=== PATIENT | female | born 1970 | race Caucasian/White ===

== ENCOUNTER → 2016-07-13 | Outpatient (CLI) | payer MEDICAID | LOC: WI 10:13 | PROVIDERS: ATTEND Obstetrics & Gynecology | DX: Z12.31 Encounter for screening mammogram for malignant neoplasm of breast (principal) | CPT/HCPCS: 77067; G0202 ==

== ENCOUNTER 2016-07-14 13:13 | Emergency (ER) | payer MEDICAID ==
[2016-07-14] MEDS ORDERED: PREDNISONE 20 MG TABLET PO ONE (14:05)
[2016-07-14] MEDS ORDERED: ALBUTEROL SULFATE HFA (90 MCG/PUFF) 200 PUFF/8.5 GM MDI IH ONE (14:06)
--- NOTE | 2016-07-14 14:16 | ER Document Report ---
ED Respiratory Problem - General Chief Complaint: Productive Cough Stated Complaint: COUGH Notes: [facility] complaining of 2 weeks of congested cough. She has nasal congestion as well. She went to an urgent care about a week ago and they started her on an antibiotic and has not helped. She tried using her friend's albuterol inhaler and doesn't feel like it is helping. The patient also started having coughing spells that resulted in her vomiting. She's had pain around her lower ribs on both sides from the coughing but that's been easing up. She is also had some pain in her hernia from the coughing as well. The patient says that yesterday she started having some diarrhea. Her significant other is also having diarrhea and vomiting presently. These is that she's felt subjective fever starting yesterday. She denies any other chest pain or difficult to breathing. She denies any history of asthma. She quit smoking back in March. She has had an albuterol inhaler prescribed to her once previously. The patient denies any. She denies any rashes or swelling. She denies any urinary symptoms. Denies . TRAVEL OUTSIDE OF THE [place] IN LAST 30 DAYS: No - Related Data Allergies/Adverse Reactions: chlorpheniramine [From [employer]] Allergy (Severe, Verified 07/14/16 13:41) headache, n and v dextromethorphan tannate [From [employer]] Allergy (Severe, Verified 07/14/16 13: 41) headache, n and v pseudoephedrine tannate [From [employer]] Allergy (Severe, Verified 07/14/16 13:41 ) headache, n and v Home Medications: Current Home Medications Cefdinir [Omnicef 300 mg Capsule] 1 cap PO BID 07/14/16 [History] Guaifenesin [Tussin] 100 mg PO PRN PRN 07/14/16 [History] Guaifenesin/Dextromethorphan [Mucus Relief Dm Tablet] 1 each PO 07/14/16 [ History] Omeprazole 20 mg PO DAILY 07/14/16 [History] Pantoprazole Sodium [Protonix] 20 mg PO DAILY 07/14/16 [History] Past Medical History - Social History Smoking Status: Former Smoker Lives with: Spouse/Significant other Family History: CAD, DM, Hypertension, Thyroid Disfunction Patient has suicidal ideation: No Patient has homicidal ideation: No - Past Medical History Cardiac Medical History: Reports: Hx Hypertension - no current meds Denies: Hx Coronary Artery Disease, Hx Heart Attack Pulmonary Medical History: Reports: Hx Bronchitis - hx of, Hx Pneumonia - hx of Denies: Hx Asthma, Hx COPD Neurological Medical History: Denies: Hx Cerebrovascular Accident, Hx Seizures Endocrine Medical History: Reports: Hx Diabetes Mellitus Type 2 - "borderline" per pt Renal/ Medical History: Denies: Hx Peritoneal Dialysis GI Medical History: Reports: Hx Gastroesophageal Reflux Disease Musculoskeltal Medical History: Denies Hx Arthritis Psychiatric Medical History: Reports: Hx Depression - anxiety Past Surgical History: Reports: Hx Section - x2, Hx Gynecologic Surgery - novasure, vag repair, Hx Tonsillectomy, Hx Tubal Ligation - Immunizations Immunizations up to date: No Hx Diphtheria, Pertussis, Tetanus Vaccination: No Review of Systems - Review of Systems Notes: A total of 11 systems were reviewed. Pertinent positives and negatives are listed in the history of present illness. Physical Exam - Vital signs Vitals: Temp Pulse Resp BP Pulse Ox 98.3 F 73 22 H 139/69 H 99 07/14/16 13:18 07/14/16 13:18 07/14/16 13:18 07/14/16 13:18 07/14/16 13:18 - Notes Notes: General presentation: Well developed alert patient who does not appear acutely ill or toxic. HEAD: Normocephalic and atraumatic. ENT: Neck is supple. Moist mucous membranes. No pharyngeal erythema edema or exudates. Hearing intact to normal voice. Eye: Pupils are equal, round. Lids normal. Conjunctiva clear. Pulmonary: No respiratory distress. Inspiratory and expiratory wheezes bilaterally with good air excursion without rales, rhonchi. Circulatory: Regular rate no significant murmurs, rubs, or gallop. Abdomen: Soft, nontender abdomen. No palpable organomegaly or masses. Normal bowel sounds. Neurologic: Awake, alert, and oriented. Grossly normal and symmetrical strength. MSK: Normal strength and range of motion. No swelling or tenderness. Skin: Skin is warm and dry with no lesions or rash. Psychiatric: Normal mood, affect, and cognition. Course - Re-evaluation Re-evalutation: 07/14/16 14:10 Patient with cough for 2 weeks with history of smoking. Symptoms most consistent with bronchitis. She is not hypoxic. No respiratory distress. We'll treat with albuterol and steroids. Regarding the new onset of diarrhea, patient may have developed GI bug or this may be secondary to the antibiotics that the urgent care gave her 4 the bronchitis last week. She does not appear dehydrated. We'll recommend by mouth fluids 07/14/16 15:05 Patient remained stable. She has improved aeration with 2 puffs of albuterol. She has had the prednisone. I have counseled her regarding management of her symptoms. She will be discharged home. - Vital Signs Vital signs: Temp Pulse Resp BP Pulse Ox 98.3 F 73 22 H 139/69 H 99 07/14/16 13:18 07/14/16 13:18 07/14/16 13:18 07/14/16 13:18 07/14/16 13:18 Discharge - Discharge Clinical Impression: Bronchitis Instructions: Bronchitis ([facility]) Additional Instructions: Use inhaler every 4 hours as needed for wheezing and cough. Try Mucinex through the day to help thin secretions to cough sputum up. Use prednisone daily with next dose tomorrow with breakfast or lunch. Return for fevers not controlled by Tylenol and Motrin, worsening difficult to breathing, chest pain, or other worsening or concerning symptoms. Bronchitis You have acute bronchitis. This disease is an infection or inflammation of the air passageways in your lungs. Symptoms usually include cough, low grade fever, shortness of breath, and wheezing. The cough usually persists for a couple of weeks. Most cases of bronchitis get better without antibiotics. We prescribe antibiotics when we believe bacteria are damaging your airways, or if there's high risk the bronchitis will worsen into pneumonia. Increase your fluid intake. A cool mist humidifier may make your lungs more comfortable. An expectorant (cough medicine that loosens phlegm) can help. If you smoke, STOP!!! Recovery from bronchitis can be somewhat slow, but you should see improvement within a day or two. Repeated episodes of bronchitis may result in lung damage -- for example, chronic bronchitis, recurrent pneumonias, or emphysema. Call the doctor if you develop increasing fever, shortness of breath, chest pain, bloody sputum, or otherwise worsen. If you have not improved at all after several days, contact the physician. Prescriptions: Albuterol Sulfate [Proair HFA Inhalation Aerosol 8.5 gm MDI] 2 puff IH Q4H PRN # 1 mdi PRN Reason: Prednisone [Deltasone 20 mg Tablet] 3 tab PO DAILY 5 Days
[2016-07-14 15:27] VITALS: BP 140/70
== END 2016-07-14 15:25 | disposition home or self-care (01) ==
LOC: ER 13:13
DX: J40 Bronchitis, not specified as acute or chronic (principal); R05 Cough; R11.10 Vomiting, unspecified; I10 Essential (primary) hypertension; R73.03 Prediabetes; Z98.51 Tubal ligation status; Z87.891 Personal history of nicotine dependence
CPT/HCPCS: 99283; J7512; J3490

== ENCOUNTER → 2017-01-29 | Outpatient (CLI) | payer MEDICAID | LOC: OD 10:01 | PROVIDERS: ATTEND Family Medicine | DX: B34.9 Viral infection, unspecified (principal); Z68.42 Body mass index [BMI] 45.0-49.9, adult | CPT/HCPCS: 87804 ==

== ENCOUNTER 2018-09-08 00:01 | Emergency (ER) | payer MEDICAID ==
[2018-09-08] MEDS ORDERED: ONDANSETRON 4 MG TAB.RAPDIS PO ONE (00:14)
[2018-09-08] MEDS ORDERED: NORMAL SALINE 1000 ML 1,000 ML IV ONE (00:14)
[2018-09-08] MEDS ORDERED: OXYCODONE-ACETAMINOPHEN 5-325 MG TABLET PO ONE (00:15)
--- NOTE | 2018-09-08 00:18 | ER Document Report ---
ED Medical Screen (RME) - General Chief Complaint: Abdominal Pain Stated Complaint: LEFT SIDE PAIN/VOMITING Time Seen by Provider: 09/08/18 00:13 Primary Care Provider: MELISSA TAFOYA DO [Primary Care Provider] - Follow up as needed Notes: 47-year-old female chief complaint of severe mid to left-sided abdominal pain and vomiting. She has a history of gastric bypass, she has a known very large hernia over the lower abdomen generally with large amount of intestines in the hernia persistently, had a gastric bypass to lose weight so she could have this repaired at [facility]. Denies fever but states she is started vomiting with severe pain today. TRAVEL OUTSIDE OF THE [place] IN LAST 30 DAYS: No - Related Data Allergies/Adverse Reactions: chlorpheniramine [From [employer]] Allergy (Severe, Verified 07/14/16 13:41) headache, n and v dextromethorphan tannate [From [employer]] Allergy (Severe, Verified 07/14/16 13:41) headache, n and v pseudoephedrine tannate [From [employer]] Allergy (Severe, Verified 07/14/16 13:41) headache, n and v Past Medical History - Past Medical History Cardiac Medical History: Reports: Hx Hypertension - no current meds Denies: Hx Coronary Artery Disease, Hx Heart Attack Pulmonary Medical History: Reports: Hx Bronchitis - hx of, Hx Pneumonia - hx of Denies: Hx Asthma, Hx COPD Neurological Medical History: Denies: Hx Cerebrovascular Accident, Hx Seizures Endocrine Medical History: Reports: Hx Diabetes Mellitus Type 2 - "borderline" per pt Renal/ Medical History: Denies: Hx Peritoneal Dialysis GI Medical History: Reports: Hx Gastroesophageal Reflux Disease Musculoskeltal Medical History: Denies Hx Arthritis Psychiatric Medical History: Reports: Hx Depression - anxiety Past Surgical History: Reports: Hx Section - x2, Hx Gynecologic Surgery - novasure, vag repair, Hx Tonsillectomy, Hx Tubal Ligation - Immunizations Immunizations up to date: No Hx Diphtheria, Pertussis, Tetanus Vaccination: No Physical Exam - Vital signs Vitals: Temp Pulse Resp BP Pulse Ox 98.1 F 89 20 172/88 H 100 09/08/18 00:09 09/08/18 00:09 09/08/18 00:09 09/08/18 00:09 09/08/18 00:09 - Abdominal Tenderness: Tender - Very large distention of the lower abdomen, tenderness is actually worst above this in the left upper quadrant and mid abdomen, I do not see an incarcerated hernia on exam. Course - Re-evaluation Re-evalutation: Patient appears to be guarding in the left upper quadrant and then mid abdomen although exam is limited by body habitus and sitting position. Because of patient's level of distress with abdominal pain, history of gastric bypass and large hernia, she was upgraded to triage level 2 I have greeted and performed a rapid initial assessment of this patient. A comprehensive ED assessment and evaluation of the patient, analysis of test results and completion of the medical decision making process will be conducted by additional ED providers. - Vital Signs Vital signs: Temp Pulse Resp BP Pulse Ox 98.1 F 89 20 172/88 H 100 09/08/18 00:09 09/08/18 00:09 09/08/18 00:09 09/08/18 00:09/08/18 00:09 Doctor's Discharge - Discharge Referrals: MELISSA TAFOYA DO [Primary Care Provider] - Follow up as needed
[2018-09-08 00:32] LABS: ABSOLUTE LYMPHOCYTES (AUTO) 1.4 10^3/uL (0.5-4.7); ABSOLUTE NEUT (AUTO) 8.5 10^3/uL (1.7-8.2); BASOPHILS % (AUTO) 0.5 % (0-2); EOSINOPHILS % (AUTO) 1.2 % (0-6); HEMATOCRIT 41.1 % (36.0-47.0); HEMOGLOBIN 13.9 g/dL (12.0-15.5); LYMPHOCYTES % (AUTO) 13.4 % (13-45); MEAN CORPUSCULAR HEMOGLOBIN 28.2 pg (27.0-33.4); MEAN CORPUSCULAR HGB CONC 33.9 g/dL (32.0-36.0); MEAN CORPUSCULAR VOLUME 83 fl (80-97); MONOCYTES % (AUTO) 4.1 % (3-13); PLATELET COUNT 275 10^3/uL (150-450); RED BLOOD COUNT 4.94 10^6/uL (3.72-5.28); RED CELL DISTRIBUTION WIDTH 13.1 % (11.5-14.0); SEGMENTED NEUTROPHILS % (AUTO) 80.8 % (42-78); TOTAL CELLS COUNTED % (AUTO) 100 %; WHITE BLOOD COUNT 10.6 10^3/uL (4.0-10.5)
[2018-09-08 00:33] LABS: ABSOLUTE BASOPHILS # (AUTO) 0.1 10^3/uL (0.0-0.2); ABSOLUTE EOSINOPHILS # (AUTO) 0.1 10^3/uL (0.0-0.6); ABSOLUTE MONOCYTES (AUTO) 0.4 10^3/uL (0.1-1.4)
[2018-09-08 00:38] LABS: APPEARANCE,URINE SLIGHTLY-CLOUDY; BILIRUBIN,URINE NEGATIVE (NEGATIVE); COLOR,URINE YELLOW; GLUCOSE, URINE NEGATIVE (NEGATIVE); KETONES,URINE TRACE mg/dL (NEGATIVE); LEUKOCYTE ESTERASE,URINE LARGE (NEGATIVE); NITRITE,URINE NEGATIVE (NEGATIVE); PROTEIN,URINE 30 mg/dL (NEGATIVE); URINE SPECIFIC GRAVITY 1.028
--- NOTE | 2018-09-08 00:48 | RADIOLOGY REPORT (SQ) ---
CLINICAL HISTORY: SHARP ABD PAIN, HX BYPASS, VOMITING COMPARISON: None. TECHNIQUE: XR ABDOMEN SUPINE AND ERECT WITH CHEST (ABD ACUTE SERIES) 09/08/2018 12:00 AM CDT FINDINGS: Bowel gas pattern is nonspecific. There are no abnormal radiopaque foreign bodies or abnormal calcifications. There are mild degenerative changes most of the heart is normal in size. Lungs are clear. IMPRESSION: No bowel obstruction.
[2018-09-08 00:57] LABS: ALANINE AMINOTRANSFERASE 25 U/L (9-52); ALBUMIN 4.7 g/dL (3.5-5.0); ALKALINE PHOSPHATASE 88 U/L (38-126); ANION GAP 8 (5-19); ASPARTATE AMINO TRANSFERASE 21 U/L (14-36); BILIRUBIN,DIRECT 0.2 mg/dL (0.0-0.4); BILIRUBIN,TOTAL 0.7 mg/dL (0.2-1.3); BLOOD UREA NITROGEN 15 mg/dL (7-20); CALCIUM 10.1 mg/dL (8.4-10.2); CARBON DIOXIDE 28 mmol/L (22-30); CHLORIDE 102 mmol/L (98-107); GLUCOSE 147 mg/dL (75-110); LIPASE 93.2 U/L (23-300); POTASSIUM 4.8 mmol/L (3.6-5.0); SODIUM 138.2 mmol/L (137-145); TOTAL PROTEIN 7.9 g/dL (6.3-8.2)
[2018-09-08] MEDS ORDERED: HYDROMORPHONE HCL INJ/PF 2 MG/ML AMPULE IV PRN (01:03)
[2018-09-08] MEDS ORDERED: ONDANSETRON HCL INJ/PF 4 MG/2 ML SDV IV ONE (01:03)
--- NOTE | 2018-09-08 01:03 | ER Document Report ---
ED General - General Chief Complaint: Abdominal Pain Stated Complaint: LEFT SIDE PAIN/VOMITING Time Seen by Provider: 09/08/18 00:13 Primary Care Provider: MELISSA TAFOYA DO [NO LOCAL MD] - Follow up as needed Notes: Patient is a 47-year-old female with a past medical history of morbid obesity, chronic large ventral abdominal hernia, status post gastric sleeve, presents with worsening pain to her knee particularly in the left lower quadrant. The patient states that she constantly has a very large ventral hernia often has a increased prominence in the left lower quadrant although feels like it is more bulged out than normal. She states several hours prior to presentation she began having a dull, throbbing, constant discomfort to the area that became progressively more painful over the last 4 to 5 hours now a severe pain. States that she vomited multiple times since the pain started. She did try taking Pepto-Bismol with no relief. She states that she has had similar pain in the past although this might be worse than any pain she is ever had in regards to the hernia and she has never vomited in the past with this pain. She states the vomiting is what did prompted her to come to the emergency department. She has not had fever or constitutional symptoms. No obvious triggering factor tonight. She has not seen her primary care doctor regarding today's concerns. TRAVEL OUTSIDE OF THE [place] IN LAST 30 DAYS: No - Related Data Allergies/Adverse Reactions: chlorpheniramine [From [email or web address]] Allergy (Severe, Verified 07/14/16 13:41) headache, n and v dextromethorphan tannate [From [employer]] Allergy (Severe, Verified 07/14/16 13: 41) headache, n and v pseudoephedrine tannate [From [employer]] Allergy (Severe, Verified 07/14/16 13 :41) headache, n and v Past Medical History - General Information source: Patient - Social History Smoking Status: Never Smoker Frequency of alcohol use: None Drug Abuse: None Lives with: Family Family History: CAD, DM, Hypertension, Thyroid Disfunction - Past Medical History Cardiac Medical History: Reports: Hx Hypertension - no current meds Denies: Hx Coronary Artery Disease, Hx Heart Attack Pulmonary Medical History: Reports: Hx Bronchitis - hx of, Hx Pneumonia - hx of Denies: Hx Asthma, Hx COPD Neurological Medical History: Denies: Hx Cerebrovascular Accident, Hx Seizures Endocrine Medical History: Reports: Hx Diabetes Mellitus Type 2 - "borderline" per pt Renal/ Medical History: Denies: Hx Peritoneal Dialysis GI Medical History: Reports: Hx Gastroesophageal Reflux Disease Musculoskeletal Medical History: Denies Hx Arthritis Psychiatric Medical History: Reports: Hx Depression - anxiety Past Surgical History: Reports: Hx Section - x2, Hx Gynecologic Surgery - novasure, vag repair, Hx Tonsillectomy, Hx Tubal Ligation - Immunizations Immunizations up to date: No Hx Diphtheria, Pertussis, Tetanus Vaccination: No Review of Systems - Review of Systems Notes: Constitutional: Negative for fever. HENT: Negative for sore throat. Eyes: Negative for visual changes. Cardiovascular: Negative for chest pain. Respiratory: Negative for shortness of breath. Gastrointestinal: Positive for abdominal pain, nausea and vomiting Genitourinary: Negative for dysuria. Musculoskeletal: Negative for back pain. Skin: Negative for rash. Neurological: Negative for headaches, weakness or numbness. 10 point ROS negative except as marked above and in HPI. Physical Exam - Vital signs Vitals: Temp Pulse Resp BP Pulse Ox 98.1 F 89 20 172/88 H 100 09/08/18 00:09 09/08/18 00:09 09/08/18 00:09 09/08/18 00:09/08/18 00:09 Interpretation: Hypertensive Notes: PHYSICAL EXAMINATION: GENERAL: Appears very uncomfortable HEAD: Atraumatic, normocephalic. EYES: Pupils equal round and reactive to light, extraocular movements intact, sclera anicteric, conjunctiva are normal. ENT: nares patent, oropharynx clear without exudates. Moist mucous membranes. NECK: Normal range of motion, supple without lymphadenopathy LUNGS: Breath sounds clear to auscultation bilaterally and equal. No wheezes rales or rhonchi. HEART: Regular rate and rhythm without murmurs ABDOMEN: Morbidly obese abdomen, extremely large ventral hernia with an increased protuberance in the left lower quadrant portion of the ventral hernia. There is diffuse tenderness on palpation of the hernia although it is overall soft and compressible including over the left lower quadrant. Bowel sounds are present. EXTREMITIES: Normal range of motion, no pitting or edema. No cyanosis. NEUROLOGICAL: No focal neurological deficits. Moves all extremities spontaneously and on command. PSYCH: Normal mood, normal affect. SKIN: Warm, Dry, normal turgor, no rashes or lesions noted. Course - Re-evaluation Re-evalutation: 09/08/18 01:02 Patient presents with severe left-sided lower abdominal pain. Has a very large ventral abdominal hernia that is constantly present but there is an area of bulging to the left lower abdomen that patient states is always there but does not usually protrude this much. The patient has exquisite tenderness on palpation of this area although it is soft and compressible. She has had recurrent episodes of vomiting. I did immediately contact the surgeon on-call Dr. Pink due to concerns of possible incarcerated hernia. He requested CT scan of the abdomen and pelvis prior to formally consulting and evaluating the patient. This will be completed at his request. Labs pending. Will provide analgesia, IV fluids and reassess the patient. 09/08/18 04:[address] Pink has consulted on the patient, advises patient is safe for discharge home. Patient does appear much more comfortable, no longer in any kind of distress. At this time will discharge with return precaut ions and follow-up recommendations. Verbal discharge instructions given a the bedside and opportunity for questions given. Medication warnings reviewed. Patient is in agreement with this plan and has verbalized understanding of return precautions and the need for primary care follow-up in the next 24-72 hours. - Vital Signs Vital signs: Temp Pulse Resp BP Pulse Ox 98.1 F 89 20 172/88 H 100 09/08/18 00:09 09/08/18 00:09 09/08/18 00:09 09/08/18 00:09 09/08/18 00:09 - Laboratory Result Diagrams: 09/08/18 00:15 09/08/18 00:15 Laboratory results interpreted by me: 09/08/18 09/08/18 09/08/18 00:15 00:15 00:15 WBC 10.6 H Seg Neutrophils % 80.8 H Absolute Neutrophils 8.5 H Glucose 147 H Urine Protein 30 H Urine Ketones TRACE H Urine Urobilinogen 4.0 H Ur Leukocyte Esterase LARGE H - Diagnostic Test Radiology reviewed: Reports reviewed Discharge - Discharge Clinical Impression: Ventral hernia Qualifiers: Obstruction and gangrene presence: without obstruction or gangrene Qualified Code(s): K43.9 - Ventral hernia without obstruction or gangrene Abdominal pain Qualifiers: Abdominal location: unspecified location Qualified Code(s): R10.9 - Unspecified abdominal pain Nausea and vomiting Qualifiers: Vomiting type: unspecified Vomiting Intractability: non-intractable Qualified Code(s): R11.2 - Nausea with vomiting, unspecified Condition: Good Disposition: HOME, SELF-CARE Additional Instructions: Keep a clear liquid diet for the next 48 hours. Take stool softeners 2 tabs docusate twice daily. Return if you have worsening pain, fever, persistent vomiting, pass out, or have any other symptoms that are worrisome to you. Referrals: MELISSA TAFOYA DO [NO LOCAL MD] - Follow up in 3-5 days
--- NOTE | 2018-09-08 02:34 | RADIOLOGY REPORT (SQ) ---
CLINICAL HISTORY: abdominal pain, vomiting, ?incarcerated hernia COMPARISON: None. TECHNIQUE: CT ABDOMEN PELVIS WITH IV CONTRAST on 09/08/2018 12:51 AM CDT This exam was performed according to our departmental dose-optimization program, which includes automated exposure control, adjustment of the mA and/or kV according to patient size and/or use of iterative reconstruction technique. FINDINGS: Lower lungs are clear. Abdomen: The liver is normal in appearance. There is no biliary dilatation. Gallbladder is normal in appearance. There are postoperative changes of the upper stomach. The pancreas and spleen are normal in appearance. The adrenal glands and kidneys are unremarkable. Abdominal aorta is normal in course and caliber without aneurysm. There is no free air. There is no retroperitoneal adenopathy. Pelvis: There is dilatation of small bowel loops proximal to the femoral hernias component. Distal small bowel is decompressed. Urinary bladder is unremarkable. There is no free fluid. Uterus is normal in size. Appendix is not clearly seen. There are large complex ventral hernias extending into the pannus. Skeleton: There are no acute osseous findings. No suspicious bony lesions. IMPRESSION: Complex ventral hernia containing multiple bowel loops. Small bowel obstruction may secondarily
--- NOTE | 2018-09-08 04:19 | PDOC CONSULTATION ---
Consultation Consult Date: 09/08/18 Provider Consulted: MALATHI LEI Consult reason:: Abdominal pain ventral hernia History of Present Illness Admission Date/PCP: NIGHAT TOWNSEND MD History of Present Illness: AILYN STRINGER is a 47 year old female who presents with left-sided abdominal pain and nausea. She has a long-standing history of a very large lower abdominal ventral hernia that resulted from previous surgery. The dates back to 2013 last seen in the emergency room here. She has undergone bariatric surgery and attempts at weight loss so that the hernia could be repaired. She has seen multiple surgeons suggested that she lose weight that the hernia could not be repaired until she lost some significant amount of weight. This resulted in bariatric surgery done at [facility] in [place] approximately 5 years ago. Patient is only lost 15 to 25 pounds as her gastric sleeve surgery. Tonight with increasing left-sided abdominal pain over the course of the last couple days has not really had a significant bowel movement however has been passing flatus. Denies any severe abdominal pain however her pain is localized to the left side which she said is usual for her but over the last couple days has been somewhat worse. Past Medical History Cardiac Medical History: Reports: Hypertension - no current meds Denies: Coronary Artery Disease, Myocardial Infarction Pulmonary Medical History: Reports: Bronchitis - hx of, Pneumonia - hx of Denies: Asthma, Chronic Obstructive Pulmonary Disease (COPD) Neurological Medical History: Denies: Seizures Endocrine Medical History: Reports: Diabetes Mellitus Type 2 - "borderline" per pt GI Medical History: Reports: Gastroesophageal Reflux Disease Musculoskeltal Medical History: Denies: Arthritis Psychiatric Medical History: Reports: Depression - anxiety Hematology: Denies: Anemia Past Surgical History Past Surgical History: Reports: Section - x2, Tonsillectomy, Tubal Ligation, Other - Gastric sleeve surgery Social History Smoking Status: Former Smoker Frequency of Alcohol Use: Rare Hx Recreational Drug Use: No Hx Prescription Drug Abuse: No Family History Family History: CAD, DM, Hypertension, Thyroid Disfunction Parental Family History Reviewed: No Children Family History Reviewed: NA Sibling(s) Family History Reviewed.: NA Medication/Allergy Home Medications: Albuterol Sulfate [Proair HFA Inhalation Aerosol 8.5 gm MDI] 2 puff IH Q4H PRN #1 mdi 07/14/16 Cefdinir [Omnicef 300 mg Capsule] 1 cap PO BID 07/14/16 Guaifenesin [Tussin] 100 mg PO PRN PRN 07/14/16 Guaifenesin/Dextromethorphan [Mucus Relief Dm Tablet] 1 each PO 07/14/16 Omeprazole 20 mg PO DAILY 07/14/16 Pantoprazole Sodium [Protonix] 20 mg PO DAILY 07/14/16 Prednisone [Deltasone 20 mg Tablet] 3 tab PO DAILY 5 Days tablet 07/14/16 Allergies/Adverse Reactions: chlorpheniramine [From [employer] ] Allergy (Severe, Verified 07/14/16 13:41) headache, n and v dextromethorphan tannate [From [employer] ] Allergy (Severe, Verified 07/14/16 13:41) headache, n and v pseudoephedrine tannate [From [employer] ] Allergy (Severe, Verified 07/14/16 13:41) headache, n and v Physical Exam Vital Signs: Temp Pulse Resp BP Pulse Ox 98.1 F 89 20 172/88 H 100 09/08/18 00:09 09/08/18 00:09 09/08/18 00:09 09/08/18 00:09 09/08/18 00:09 Intake & Output 09/06/18 09/07/18 09/08/18 06:59 06:59 06:59 Intake Total 1000 Balance 1000 Weight 129.1 kg Results Laboratory Results: 09/08/18 00:15 09/08/18 00:15 09/08/18 09/08/18 09/08/18 00:15 00:15 00:15 WBC 10.6 H RBC 4.94 Hgb 13.9 Hct 41.1 MCV 83 MCH 28.2 MCHC 33.9 RDW 13.1 Plt Count 275 Seg Neutrophils % 80.8 H Lymphocytes % 13.4 Monocytes % 4.1 Eosinophils % 1.2 Basophils % 0.5 Absolute Neutrophils 8.5 H Absolute Lymphocytes 1.4 Absolute Monocytes 0.4 Absolute Eosinophils 0.1 Absolute Basophils 0.1 Sodium 138.2 Potassium 4.8 Chloride 102 Carbon Dioxide 28 Anion Gap 8 BUN 15 Creatinine 0.58 Est GFR ( Amer) > 60 Est GFR (Non-Af Amer) > 60 Glucose 147 H Lactic Acid 1.0 Calcium 10.1 Total Bilirubin 0.7 AST 21 ALT 25 Alkaline Phosphatase 88 Total Protein 7.9 Albumin 4.7 Lipase 93.2 Urine Color Urine Appearance Urine pH Ur Specific [place] Urine Protein Urine Glucose (UA) Urine Ketones Urine Blood Urine Nitrite Ur Leukocyte Esterase Urine WBC (Auto) Urine RBC (Auto) 09/08/18 00:15 WBC RBC Hgb Hct MCV MCH MCHC RDW Plt Count Seg Neutrophils % Lymphocytes % Monocytes % Eosinophils % Basophils % Absolute Neutrophils Absolute Lymphocytes Absolute Monocytes Absolute Eosinophils Absolute Basophils Sodium Potassium Chloride Carbon Dioxide Anion Gap BUN Creatinine Est GFR ( Amer) Est GFR (Non-Af Amer) Glucose Lactic Acid Calcium Total Bilirubin AST ALT Alkaline Phosphatase Total Protein Albumin Lipase Urine Color YELLOW Urine Appearance SLIGHTLY-CLOUDY Urine pH 7.0 Ur Specific [place] 1.028 Urine Protein 30 H Urine Glucose (UA) NEGATIVE Urine Ketones TRACE H Urine Blood NEGATIVE Urine Nitrite NEGATIVE Ur Leukocyte Esterase LARGE H Urine WBC (Auto) 5 Urine RBC (Auto) 3 Impressions: Acute Abdomen Series 09/08/18 00:00 IMPRESSION: No bowel obstruction. Abdomen/Pelvis CT 09/08/18 00:51 IMPRESSION: Complex ventral hernia containing multiple bowel loops. Small bowel obstruction may secondarily Assessment & Plan - Plan Summary Plan Summary: Impression: Long-standing ventral hernia with chronic abdominal pain status post gastric sleeve surgery. Her abdominal pain has markedly improved since her emergency room stay Long discussion with the patient and family we went over the CT scan findings I explained that any type of attempted repair of this large ventral hernia at this point not any significant weight loss we will almost 100% result in failure Plain that her left-sided abdominal pain right now is secondary not to a bowel obstruction but to the hernia defect and the small bowel and colon sliding over the edges of her remaining fascia. Patient also complains of chronic constipation she exacerbates her current problem After long discussion with the patient and her family is encouraged to follow-up with her bariatric program they may be able to assist her with a type of back on track program for further weight loss. Short-term she is instructed to stay on a clear liquid diet for the next 48 hours and start taking stool softeners for the constipation She is also instructed to return here should she start developing increasing nausea and vomiting and increasing abdominal pain
[2018-09-08 04:24] VITALS: BP 145/76
== END 2018-09-08 04:44 | disposition home or self-care (01) ==
LOC: ER 00:01
DX: K43.9 Ventral hernia without obstruction or gangrene (principal); R11.2 Nausea with vomiting, unspecified; R10.32 Left lower quadrant pain; I10 Essential (primary) hypertension; Z98.51 Tubal ligation status; K21.9 Gastro-esophageal reflux disease without esophagitis; Z79.899 Other long term (current) drug therapy; Z88.8 Allergy status to other drugs, medicaments and biological substances; Z98.84 Bariatric surgery status
CPT/HCPCS: 99285; 96361; 96374; 96375; 36415; 83605; 83690; 85025; 80053; 81001; 74022; 74177; J1170; J2405; J7030

== ENCOUNTER 2018-10-01 05:56 | Emergency (ER) | payer MEDICAID ==
[2018-10-01] MEDS ORDERED: MORPHINE SULFATE 10 MG/ML INJ IV ONE ×2 (06:34→16:22)
[2018-10-01] MEDS ORDERED: ONDANSETRON HCL INJ/PF 4 MG/2 ML SDV IV ONE (06:34)
--- NOTE | 2018-10-01 06:40 | ER Document Report ---
ED General - General TRAVEL OUTSIDE OF THE [place] IN LAST 30 DAYS: No <ARGENIS CALDERON A - Last Filed: 10/01/18 14:25> <TORI LUNDY Terrence - Last Filed: 10/01/18 17:55> - General Chief Complaint: Abdominal Pain Stated Complaint: ABDOMINAL PAIN AND VOMITING Time Seen by Provider: 10/01/18 06:20 Primary Care Provider: NIGHAT TOWNSEND MD [Primary Care Provider] - Follow up as needed - [facility] Notes: Patient is a 47-year-old female that presents to the emergency department for chief complaint of hernia pain. Patient reports history of left-sided hernia after a . The hernia has been there for years and does frequently give her pain. She states the last time it was this severe was about a month ago. Patient states last night while at rest she had sudden onset of severe sharp pain in her left side where the hernia is located. She states she was passing gas yesterday and did have a loose bowel movement this morning. Patient reports nausea with multiple episodes of vomiting starting last night. She denies fevers or chills. She denies taking home medications for pain. Past Medical History: Chronic ventral hernia, COPD, obesity Past Surgical History: , bariatric surgery Social History: Reviewed in chart Family History: Reviewed and noncontributory for presenting illness Allergies: Reviewed, see documented allergy list. REVIEW OF SYSTEMS: CONSTITUTIONAL : No fever No chills No diaphoresis No recent illness EENT: No vision changes No congestion No sore throat CARDIOVASCULAR: No chest pain No palpitations RESPIRATORY: No shortness of breath No cough No difficulty breathing GASTROINTESTINAL: abdominal pain nausea vomiting diarrhea GENITOURINARY: No dysuria No hematuria No difficulty urinating MUSCULOSKELETAL: No back pain No leg pain No arm pain SKIN: No rashes No lesions LYMPHATIC: No swollen, enlarged glands. NEUROLOGICAL: No lightheadedness No headache No weakness No paresthesias PSYCHIATRIC: No anxiety No depression PHYSICAL EXAMINATION: Vital signs reviewed, nursing noted reviewed. GENERAL: Appears uncomfortable, obese and in no acute distress. HEAD: Atraumatic, normocephalic. EYES: Eyes appear normal, extraocular movements intact, sclera anicteric, conjunctiva are normal. ENT: nares patent, oropharynx clear without exudates. Moist mucous membranes. NECK: Normal range of motion, supple without lymphadenopathy LUNGS: Breath sounds clear to auscultation bilaterally and equal. No wheezes rales or rhonchi. HEART: Regular rate and rhythm without murmurs ABDOMEN: large ventral hernia on the left lower abdomen that is firm and tender to palpation. No rebound, guarding, or rigidity. EXTREMITIES: Nontender, good range of motion, trace pretibial edema bilaterally NEUROLOGICAL: No focal neurological deficits. Moves all extremities spontaneously Motor and sensory grossly intact on exam. PSYCH: Anxious mood, normal affect. SKIN: Warm, Dry, normal turgor, no rashes or lesions noted on exposed skin (ARGENIS CALDERON) - Related Data Allergies/Adverse Reactions: chlorpheniramine [From [address] DS] Allergy (Severe, Verified 10/01/18 06:31) headache, n and v dextromethorphan tannate [From [address] DS] Allergy (Severe, Verified 10/01/18 06:31) headache, n and v pseudoephedrine tannate [From [address] DS] Allergy (Severe, Verified 10/01/18 06:31) headache, n and v NSAIDS (Non-Steroidal Anti-Inflamma Adverse Reaction (Verified 10/01/18 07:39) Past Medical History - Social History Smoking Status: Former Smoker Frequency of alcohol use: Rare Drug Abuse: None Family History: CAD, DM, Hypertension, Thyroid Disfunction Patient has suicidal ideation: No Patient has homicidal ideation: No - Past Medical History Cardiac Medical History: Reports: Hx Hypertension - no current meds Denies: Hx Coronary Artery Disease, Hx Heart Attack Pulmonary Medical History: Reports: Hx Bronchitis - hx of, Hx Pneumonia - hx of Denies: Hx Asthma, Hx COPD Neurological Medical History: Denies: Hx Cerebrovascular Accident, Hx Seizures Endocrine Medical History: Reports: Hx Diabetes Mellitus Type 2 - "borderline" per pt Renal/ Medical History: Denies: Hx Peritoneal Dialysis GI Medical History: Reports: Hx Gastroesophageal Reflux Disease Musculoskeletal Medical History: Denies Hx Arthritis Psychiatric Medical History: Reports: Hx Depression - anxiety Past Surgical History: Reports: Hx Section - x2, Hx Gynecologic Surgery - novasure, vag repair, Hx Tonsillectomy, Hx Tubal Ligation, Other - Gastric sleeve surgery - Immunizations Immunizations up to date: No Hx Diphtheria, Pertussis, Tetanus Vaccination: No <ARGENIS CALDERON - Last Filed: 10/01/18 14:25> - Vital signs Vitals: Temp Pulse Resp BP Pulse Ox 98.0 F 83 24 H 153/83 H 99 10/01/18 06:01 10/01/18 06:01 10/01/18 06:01 10/01/18 06:01 10/01/18 06:01 Course - Laboratory Result Diagrams: 10/01/18 06:35 10/01/18 08:09 <CALDERONARGENIS A - Last Filed: 10/01/18 14:25> - Laboratory Result Diagrams: 10/01/18 06:35 10/01/18 08:09 <JACYELAINEJOSE ANGELMELISSA M - Last Filed: 10/01/18 17:55> - Re-evaluation Re-evalutation: 10/01/18 06:39 Vitals reviewed. Nursing notes reviewed. Patient is afebrile and nontoxic. She does appear uncomfortable and reports nausea. She was given IV fluids, morphine and Zofran for symptomatic management. Chart review shows a complex ventral hernia that was evaluated by Dr. Pink on her previous visit. Patient had been recommended significant weight loss prior to being able to repair this hernia for concern that repair would fail if she was unable to lose the weight. CT imaging will be obtained to evaluate for possible bowel obstruction or incarceration. 10/01/18 10:15 Patient's lab work today shows a very mild leukocytosis at 11 and slight hyperglycemia but is otherwise unremarkable. She has normal liver and renal function. On reevaluation patient is ambulating around the room and reports significant improvement of her pain. She does still have tenderness over the hernia site. She has some reported nausea but has not had any vomiting while in the emergency room. Her CT scan again shows partial small bowel obstruction with most of her small bowel being in this hernia. I have discussed her care with Dr. Tracy and requested his evaluation of her in the emergency room which he has agreed to. Currently we are waiting on surgical consultation. Laboratory 10/01/18 10/01/18 10/01/18 06:25 06:35 06:35 WBC 11.1 H RBC 5.01 Hgb 14.0 Hct 41.8 MCV 84 MCH 28.0 MCHC 33.5 RDW 13.4 Plt Count 279 Seg Neutrophils % 86.0 H Lymphocytes % 9.5 L Monocytes % 2.7 L Eosinophils % 1.1 Basophils % 0.7 Absolute Neutrophils 9.6 H Absolute Lymphocytes 1.1 Absolute Monocytes 0.3 Absolute Eosinophils 0.1 Absolute Basophils 0.1 Sodium Cancelled Potassium Cancelled Chloride Cancelled Carbon Dioxide Cancelled Anion Gap Cancelled BUN Cancelled Creatinine Cancelled Est GFR ( Amer) Cancelled Est GFR (Non-Af Amer) Cancelled Glucose Cancelled Calcium Cancelled Total Bilirubin Cancelled Direct Bilirubin Cancelled Neonat Total Bilirubin Cancelled Neonat Direct Bilirubin Cancelled Neonat Indirect Bili Cancelled AST Cancelled ALT Cancelled Alkaline Phosphatase Cancelled Total Protein Cancelled Albumin Cancelled Lipase Cancelled Urine Color YELLOW Urine Appearance CLOUDY Urine pH 9.0 Ur Specific [place] 1.023 Urine Protein NEGATIVE Urine Glucose (UA) NEGATIVE Urine Ketones NEGATIVE Urine Blood NEGATIVE Urine Nitrite NEGATIVE Urine Bilirubin NEGATIVE Urine Urobilinogen NEGATIVE Ur Leukocyte Esterase NEGATIVE Urine WBC (Auto) 2 Squamous Epi Cells Auto 1 Amorphous Sediment Auto TRACE Urine Mucus (Auto) RARE Urine Ascorbic Acid NEGATIVE 10/01/18 08:09 WBC RBC Hgb Hct MCV MCH MCHC RDW Plt Count Seg Neutrophils % Lymphocytes % Monocytes % Eosinophils % Basophils % Absolute Neutrophils Absolute Lymphocytes Absolute Monocytes Absolute Eosinophils Absolute Basophils Sodium 140.5 Potassium 4.5 Chloride 105 Carbon Dioxide 24 Anion Gap 12 BUN 11 Creatinine 0.52 Est GFR ( Amer) > 60 Est GFR (Non-Af Amer) > 60 Glucose 131 H Calcium 9.5 Total Bilirubin 0.9 Direct Bilirubin 0.4 Neonat Total Bilirubin Not Reportable Neonat Direct Bilirubin Not Reportable Neonat Indirect Bili Not Reportable AST 24 ALT 23 Alkaline Phosphatase 72 Total Protein 7.9 Albumin 4.7 Lipase 77.3 Urine Color Urine Appearance Urine pH Ur Specific [place] Urine Protein Urine Glucose (UA) Urine Ketones Urine Blood Urine Nitrite Urine Bilirubin Urine Urobilinogen Ur Leukocyte Esterase Urine WBC (Auto) Squamous Epi Cells Auto Amorphous Sediment Auto Urine Mucus (Auto) Urine Ascorbic Acid Abdomen/Pelvis CT 10/01/18 06:33 IMPRESSION: 1. There is a very large, multicomponent ventral hernia of the low midline abdomen, which measures at least 33.0 x 9.5 x 18.5 cm, containing the majority of the distal small bowel and right colon. Loops of small bowel are mildly distended measuring up to 3.2 cm in caliber. Appearance and configuration are not generally changed compared to recent prior examination dated 09/08/2018, however there is concern for at least partial obstruction given the appearance, numerous loops involved, and relative distal decompression of the descending colon. 2. Status post sleeve gastrectomy. 10/01/18 14:04 Patient was just evaluated by Dr. Tracy who has requested a small bowel series with Gastrografin. He feels if she has a complete obstruction she is requiring transfer to a tertiary center. He also feels the Gastrografin may alleviate the partial small bowel obstruction currently present. Patient's care will be signed out to Dr. Lundy for continued follow-up on the abdominal series. (ARGENIS CALDERON) 10/01/18 17:53 Patient was seen and reevaluated. Small bowel series failed to show any significant obstruction. In fact, following the Gastrografin, the patient was having multiple bowel movements. She was reevaluated by Dr. Tracy believe that outpatient follow-up was appropriate. The patient was amenable to this. I will get and send her home with nausea medication. She is to follow-up with surgery, return to the ED with worsening or new concerning symptoms. (TORI VILLEGAS) - Vital Signs Vital signs: Temp Pulse Resp BP Pulse Ox 97.7 F 75 17 129/58 H 95 10/01/18 11:11 10/01/18 11:11 10/01/18 14:01 10/01/18 14:01 10/01/18 14:01 - Laboratory Laboratory results interpreted by me: 10/01/18 10/01/18 06:35 08:09 WBC 11.1 H Seg Neutrophils % 86.0 H Lymphocytes % 9.5 L Monocytes % 2.7 L Absolute Neutrophils 9.6 H Glucose 131 H Discharge <ARGENIS CALDERON - Last Filed: 10/01/18 14:25> <TORI LUNDY - Last Filed: 10/01/18 17:55> - Discharge Clinical Impression: Partial small bowel obstruction Ventral hernia Qualifiers: Obstruction and gangrene presence: with obstruction but without gangrene Qualified Code(s): K43.6 - Other and unspecified ventral hernia with obstruction, without gangrene Condition: Stable Disposition: HOME, SELF-CARE Instructions: Bowel Obstruction ([facility]) Additional Instructions: Your initial scan showed a partial small bowel obstruction, but this seems to have improved after the Gastrografin small bowel follow-through. Take Zofran as needed for nausea. Follow-up with surgery in 1 to 2 weeks. Return to the ED with worsening or new concerning symptoms of any sort. Referrals: NIGHAT TOWNSEND MD [Primary Care Provider] - Follow up as needed FAISAL TRACY MD [[facility]] - Follow up as needed
[2018-10-01 06:57] LABS: ABSOLUTE BASOPHILS # (AUTO) 0.1 10^3/uL (0.0-0.2); ABSOLUTE EOSINOPHILS # (AUTO) 0.1 10^3/uL (0.0-0.6); ABSOLUTE LYMPHOCYTES (AUTO) 1.1 10^3/uL (0.5-4.7); ABSOLUTE MONOCYTES (AUTO) 0.3 10^3/uL (0.1-1.4); ABSOLUTE NEUT (AUTO) 9.6 10^3/uL (1.7-8.2); BASOPHILS % (AUTO) 0.7 % (0-2); EOSINOPHILS % (AUTO) 1.1 % (0-6); HEMATOCRIT 41.8 % (36.0-47.0); LYMPHOCYTES % (AUTO) 9.5 % (13-45); MEAN CORPUSCULAR HGB CONC 33.5 g/dL (32.0-36.0); MEAN CORPUSCULAR VOLUME 84 fl (80-97); MONOCYTES % (AUTO) 2.7 % (3-13); PLATELET COUNT 279 10^3/uL (150-450); RED BLOOD COUNT 5.01 10^6/uL (3.72-5.28); RED CELL DISTRIBUTION WIDTH 13.4 % (11.5-14.0); TOTAL CELLS COUNTED % (AUTO) 100 %; WHITE BLOOD COUNT 11.1 10^3/uL (4.0-10.5)
[2018-10-01 07:17] LABS: AMORPHOUS SEDIMENT,URINE TRACE /HPF; APPEARANCE,URINE CLOUDY; BILIRUBIN,URINE NEGATIVE (NEGATIVE); GLUCOSE, URINE NEGATIVE (NEGATIVE); KETONES,URINE NEGATIVE (NEGATIVE); LEUKOCYTE ESTERASE,URINE NEGATIVE (NEGATIVE); NITRITE,URINE NEGATIVE (NEGATIVE); PROTEIN,URINE NEGATIVE (NEGATIVE); URINE SPECIFIC GRAVITY 1.023; UROBILINOGEN,URINE NEGATIVE mg/dL (<2.0)
[2018-10-01 07:19] LABS: COLOR,URINE YELLOW
[2018-10-01 08:41] LABS: ALANINE AMINOTRANSFERASE 23 U/L (9-52); ALBUMIN 4.7 g/dL (3.5-5.0); ALKALINE PHOSPHATASE 72 U/L (38-126); ANION GAP 12 (5-19); ASPARTATE AMINO TRANSFERASE 24 U/L (14-36); BILIRUBIN,DIRECT 0.4 mg/dL (0.0-0.4); BILIRUBIN,TOTAL 0.9 mg/dL (0.2-1.3); BLOOD UREA NITROGEN 11 mg/dL (7-20); CALCIUM 9.5 mg/dL (8.4-10.2); CARBON DIOXIDE 24 mmol/L (22-30); CHLORIDE 105 mmol/L (98-107); GLUCOSE 131 mg/dL (75-110); LIPASE 77.3 U/L (23-300); POTASSIUM 4.5 mmol/L (3.6-5.0); SODIUM 140.5 mmol/L (137-145); TOTAL PROTEIN 7.9 g/dL (6.3-8.2)
--- NOTE | 2018-10-01 10:04 | RADIOLOGY REPORT (SQ) ---
EXAM DESCRIPTION: CT ABD/PELVIS WITH IV ONLY COMPLETED DATE/TIME: 10/01/2018 9:43 am REASON FOR STUDY: abdominal pain, ventral hernia COMPARISON: 09/08/2018 TECHNIQUE: CT scan of the abdomen and pelvis performed using helical scanning technique with dynamic intravenous contrast injection. No oral contrast. Images reviewed with lung, soft tissue, and bone windows. Reconstructed coronal and sagittal MPR images reviewed. Delayed images for evaluation of the urinary system also acquired. All images stored on PACS. All CT scanners at this facility use dose modulation, iterative reconstruction, and/or weight based d osing when appropriate to reduce radiation dose to as low as reasonably achievable (ALARA). [facility]: Dose Right [facility]: CareDose [facility]: Dose Right [facility]: Teradose 4D [facility]: Quantapore CONTRAST TYPE AND DOSE: contrast/concentration: Isovue 350.00 mg/ml; Total Contrast Delivered: 100.0 ml; Total Saline Delivered: 45.0 ml RENAL FUNCTION: None required. The patient is less than 50 years old. RADIATION DOSE: CT Rad equipment meets quality standard of care and radiation dose reduction techniq ues were employed. CTDIvol: 21.1 - 21.1 mGy. DLP: 2404 mGy-cm.. LIMITATIONS: None. FINDINGS: LOWER CHEST: No significant findings. No nodules or infiltrates. LIVER: Normal size. No masses. No dilated ducts. SPLEEN: Normal size. No focal lesions. PANCREAS: No masses. No significant calcifications. No adjacent inflammation or peripancreatic fluid collections. Pancreatic duct not dilated. GALLBLADDER: No identified stones by CT criteria. No inflammatory changes to suggest cholecystitis. ADRENAL GLANDS: No significant masses or asymmetry. RIGHT KIDNEY AND URETER: No solid masses. No significant calcifications. No hydronephrosis or hyd roureter. LEFT KIDNEY AND URETER: No solid masses. No significant calcifications. No hydronephrosis or hydr oureter. AORTA AND VESSELS: No aneurysm. No dissection. Renal arteries, SMA, celiac without stenosis. RETROPERITONEUM: No retroperitoneal adenopathy, hemorrhage or masses. BOWEL AND PERITONEAL CAVITY: Status post sleeve gastrectomy. No masses or inflammatory changes. No f ree fluid or peritoneal masses. APPENDIX: Normal. PELVIS: No mass. No free fluid. Normal bladder. ABDOMINAL WALL: There is a very large, multicomponent ventral hernia of the low midline abdomen, whic h measures at least 33.0 x 9.5 x 18.5 cm, containing the majority of the distal small bowel and right colon. Loops of small bowel are mildly distended measuring up to 3.2 cm in caliber. BONES: No significant or acute findings. OTHER: No other significant finding. IMPRESSION: 1. There is a very large, multicomponent ventral hernia of the low midline abdomen, whic h measures at least 33.0 x 9.5 x 18.5 cm, containing the majority of the distal small bowel and right colon. Loops of small bowel are mildly distended measuring up to 3.2 cm in caliber. Appearance and configuration are not generally changed compared to recent prior examination dated 09/08/2018, however there is concern for at least partial obstruction given the appearance, numerous loops involved, and relative distal decompression of the descending colon. 2. Status post sleeve gastrectomy. TECHNICAL DOCUMENTATION: JOB ID: [id number] Quality ID # [id number]: Final reports with documentation of one or more dose reduction techniques (e.g., Au tomated exposure control, adjustment of the mA and/or kV according to patient size, use of iterative reconstruction technique) 2010 [employer]- All Rights Reserved Reading location - IP/workstation name: [email or web address]
--- NOTE | 2018-10-01 16:38 | RADIOLOGY REPORT (SQ) ---
EXAM DESCRIPTION: SMALL BOWEL SERIES COMPLETED DATE/TIME: 10/01/2018 4:19 pm REASON FOR STUDY: small bowel obstruction COMPARISON: CT abdomen pelvis 10/01/2018, 09/08/2018, 02/23/2014 FLUOROSCOPY TIME: Less than 5 seconds 14 digital radiographic images saved to PACS. LIMITATIONS: None. PROCEDURE: Initial animal therapist image of abdomen acquired, followed by administration of 500 mL of half str ength Gastrografin. Serial radiographic images acquired. Fluoroscopic images recorded of the termin al ileum and other indicated areas. All images stored on PACS. FINDINGS: [employer] film demonstrates IV contrast in the urinary bladder and nondilated renal and ureter al collecting systems from prior CT scan earlier today. Nonobstructive bowel gas pattern. Patient drank 500 mL of half strength Gastrografin. There is prompt gastric emptying into a normal duodenum and jejunum. Patient has a large ventral hernia in the suprapubic region. The ileum, ileocecal valve, right colon and appendix are in the hernia, unobstructed. Oral contrast fills the descending colon on the 1 hour films. This report was called to Dr. Miguel in the OR IMPRESSION: Large lower anterior abdominal wall ventral hernia containing the distal small bowel, il eocecal valve, appendix, ascending colon. These bowel loops are nonobstructed. COMMENT: Quality ID 145: Final reports for procedures using fluoroscopy that document radiation exp osure indices, or exposure time and number of fluorographic images (if radiation exposure indices are not available) TECHNICAL DOCUMENTATION: JOB ID: [id number] 2[employer]- All Rights Reserved Reading location - IP/workstation name: [email or web address]
[2018-10-01 18:09] VITALS: BP 144/79
--- NOTE | 2018-10-01 22:25 | PDOC CONSULTATION ---
Consultation Consult Date: 10/01/18 Provider Consulted: FAISAL TRACY Consult reason:: Partial SBO on CT scan History of Present Illness Admission Date/PCP: NIGHAT TOWNSEND MD History of Present Illness: AILYN STRINGER is a 47 year old female with history of incisional hernia c/o pains along hernia at [facility] incisional hernia today. Associated with nausea. She had 2 ceasarean sections one 12 yrs ago and 2nd one 10 years ago. During @nd CS an attemt to repair an incisional hernia from the previous CS was done but only to recur right away. Had at least 2 other episode of partial SBO which resolved under medical max. I ordered a small bowel follow through with gastrograffin which was normal without obstruction. She had a sleeve resection at [facility] in preparation for eventual repair of inci sional hernia after weight loss. However, she only lost about 30 lbs. Past Medical History Cardiac Medical History: Reports: Hypertension - no current meds Denies: Coronary Artery Disease, Myocardial Infarction Pulmonary Medical History: Reports: Bronchitis - hx of, Pneumonia - hx of Denies: Asthma, Chronic Obstructive Pulmonary Disease (COPD) Neurological Medical History: Denies: Seizures Endocrine Medical History: Reports: Diabetes Mellitus Type 2 - "borderline" per pt GI Medical History: Reports: Gastroesophageal Reflux Disease Musculoskeltal Medical History: Denies: Arthritis Psychiatric Medical History: Reports: Depression - anxiety Hematology: Denies: Anemia Past Surgical History Past Surgical History: Reports: Section - x2, Tonsillectomy, Tubal Ligation, Other - Gastric sleeve surgery Social History Smoking Status: Former Smoker Frequency of Alcohol Use: Rare Hx Recreational Drug Use: No Hx Prescription Drug Abuse: No Family History Family History: CAD, DM, Hypertension, Thyroid Disfunction Parental Family History Reviewed: Yes Children Family History Reviewed: No Sibling(s) Family History Reviewed.: No Medication/Allergy Home Medications: Calcium Carbonate [Tums Chewable 500 mg Tab.chew] 500 mg PO TIDP PRN 10/01/18 Omeprazole 20 mg PO DAILY 10/01/18 Ondansetron [Zofran Odt 4 mg Tablet] 1 tab PO Q4H PRN #15 tab.rapdis 10/01/18 Allergies/Adverse Reactions: chlorpheniramine [From [facility] GERMAIN] Allergy (Severe, Verified 10/01/18 06:31) headache, n and v dextromethorphan tannate [From [employer] ] Allergy (Severe, Verified 10/01/18 06:31) headache, n and v pseudoephedrine tannate [From [employer] ] Allergy (Severe, Verified 10/01/18 06:31) headache, n and v NSAIDS (Non-Steroidal Anti-Inflamma Adverse Reaction (Verified 10/01/18 07:39) Review of Systems Constitutional: PRESENT: as per HPI Physical Exam Vital Signs: Temp Pulse Resp BP Pulse Ox 98.0 F 75 17 144/79 H 92 10/01/18 18:03 10/01/18 11:11 10/01/18 17:19 10/01/18 18:03 10/01/18 17:19 Intake & Output 09/30/18 10/01/18 10/02/18 06:59 06:59 06:59 Weight 129.8 kg Results Laboratory Results: 10/01/18 06:35 10/01/18 08:09 10/01/18 10/01/18 10/01/18 06:25 06:35 06:35 WBC 11.1 H RBC 5.01 Hgb 14.0 Hct 41.8 MCV 84 MCH 28.0 MCHC 33.5 RDW 13.4 Plt Count 279 Seg Neutrophils % 86.0 H Lymphocytes % 9.5 L Monocytes % 2.7 L Eosinophils % 1.1 Basophils % 0.7 Absolute Neutrophils 9.6 H Absolute Lymphocytes 1.1 Absolute Monocytes 0.3 Absolute Eosinophils 0.1 Absolute Basophils 0.1 Sodium Cancelled Potassium Cancelled Chloride Cancelled Carbon Dioxide Cancelled Anion Gap Cancelled BUN Cancelled Creatinine Cancelled Est GFR ( Amer) Cancelled Est GFR (Non-Af Amer) Cancelled Glucose Cancelled Calcium Cancelled Total Bilirubin Cancelled AST Cancelled ALT Cancelled Alkaline Phosphatase Cancelled Total Protein Cancelled Albumin Cancelled Lipase Cancelled Urine Color YELLOW Urine Appearance CLOUDY Urine pH 9.0 Ur Specific [place] 1.023 Urine Protein NEGATIVE Urine Glucose (UA) NEGATIVE Urine Ketones NEGATIVE Urine Blood NEGATIVE Urine Nitrite NEGATIVE Ur Leukocyte Esterase NEGATIVE Urine WBC (Auto) 2 10/01/18 08:09 WBC RBC Hgb Hct MCV MCH MCHC RDW Plt Count Seg Neutrophils % Lymphocytes % Monocytes % Eosinophils % Basophils % Absolute Neutrophils Absolute Lymphocytes Absolute Monocytes Absolute Eosinophils Absolute Basophils Sodium 140.5 Potassium 4.5 Chloride 105 Carbon Dioxide 24 Anion Gap 12 BUN 11 Creatinine 0.52 Est GFR ( Amer) > 60 Est GFR (Non-Af Amer) > 60 Glucose 131 H Calcium 9.5 Total Bilirubin 0.9 AST 24 ALT 23 Alkaline Phosphatase 72 Total Protein 7.9 Albumin 4.7 Lipase 77.3 Urine Color Urine Appearance Urine pH Ur Specific [place] Urine Protein Urine Glucose (UA) Urine Ketones Urine Blood Urine Nitrite Ur Leukocyte Esterase Urine WBC (Auto) Impressions: Abdomen/Pelvis CT 10/01/18 06:33 IMPRESSION: 1. There is a very large, multicomponent ventral hernia of the low midline abdomen, which measures at least 33.0 x 9.5 x 18.5 cm, containing the majority of the distal small bowel and right colon. Loops of small bowel are mildly distended measuring up to 3.2 cm in caliber. Appearance and configuration are not generally changed compared to recent prior examination dated 09/08/2018, however there is concern for at least partial obstruction given the appearance, numerous loops involved, and relative distal decompression of the descending colon. 2. Status post sleeve gastrectomy. Small Bowel X-Ray 10/01/18 14:02 IMPRESSION: Large lower anterior abdominal wall ventral hernia containing the distal small bowel, ileocecal valve, appendix, ascending colon. These bowel loops are nonobstructed. Assessment & Plan - Diagnosis (1) Morbid obesity Is this a current diagnosis for this admission?: Yes (2) Partial small bowel obstruction Is this a current diagnosis for this admission?: Yes (3) Ventral hernia Qualifiers: Obstruction and gangrene presence: with obstruction but without gangrene Qualified Code(s): K43.6 - Other and unspecified ventral hernia with obstruction, without gangrene Is this a current diagnosis for this admission?: Yes - Time Time Spent: 30 to 50 Minutes - Plan Summary Plan Summary: Patient felt better post SBFT with BM. Was concerned about her constipation. She was re-assured that there is no SBO at this time She should follow up with [facility] . May need further weight loss procedure prior to eventual repair of this large incisional/ventral hernia.
== END 2018-10-01 18:05 | disposition home or self-care (01) ==
LOC: ER 05:56
DX: K43.6 Other and unspecified ventral hernia with obstruction, without gangrene (principal); R11.2 Nausea with vomiting, unspecified; R19.7 Diarrhea, unspecified; E66.01 Morbid (severe) obesity due to excess calories; D72.829 Elevated white blood cell count, unspecified; R73.9 Hyperglycemia, unspecified; I10 Essential (primary) hypertension; J44.9 Chronic obstructive pulmonary disease, unspecified; K21.9 Gastro-esophageal reflux disease without esophagitis; Z79.899 Other long term (current) drug therapy; Z98.890 Other specified postprocedural states; Z98.84 Bariatric surgery status; Z88.8 Allergy status to other drugs, medicaments and biological substances; Z87.891 Personal history of nicotine dependence
CPT/HCPCS: 96376; 99284; 96374; 96375; 36415; 83690; 85025; 80053; 81001; 74250; 74177; J2270; J2405

== ENCOUNTER 2018-12-31 20:15 | Emergency (ER) | payer SELFPAY ==
[2018-12-31] MEDS ORDERED: ONDANSETRON 4 MG TAB.RAPDIS PO ONE (20:28)
--- NOTE | 2018-12-31 20:30 | ER Document Report ---
ED Medical Screen (RME) - General Chief Complaint: Abdominal Problem Stated Complaint: HERNIA PAIN,VOMITING Time Seen by Provider: 12/31/18 20:24 Primary Care Provider: NIGHAT TOWNSEND MD [Primary Care Provider] - Follow up as needed Mode of Arrival: Ambulatory Information source: Patient Notes: 48-year-old female presents to ED for extremely large ventral hernia. She states she has had this hernia for about 10 years and she has been told it could not be operated on her it would just come right back. She states it is been hurting for a long time but over the last month or so it is gotten progressively worse with worse nausea and vomiting and pain. She says each episode the pain stays worse. Patient is alert oriented respirations regular and unlabored s peaking in full sentences. I have greeted and performed a rapid initial assessment of this patient. A comprehensive ED assessment and evaluation of the patient, analysis of test results and completion of medical decision making process will be conducted by an additional ED providers. TRAVEL OUTSIDE OF THE [place] IN LAST 30 DAYS: No - Related Data Allergies/Adverse Reactions: chlorpheniramine [From [employer]] Allergy (Severe, Verified 10/01/18 06:31) headache, n and v dextromethorphan tannate [From [employer]] Allergy (Severe, Verified 10/01/18 06:31) headache, n and v pseudoephedrine tannate [From [employer] [facility]] Allergy (Severe, Verified 10/01/18 06:31) headache, n and v NSAIDS (Non-Steroidal Anti-Inflamma Adverse Reaction (Verified 10/01/18 07:39) Past Medical History - Past Medical History Cardiac Medical History: Reports: Hx Hypertension - no current meds Denies: Hx Coronary Artery Disease, Hx Heart Attack Pulmonary Medical History: Reports: Hx Bronchitis - hx of, Hx Pneumonia - hx of Denies: Hx Asthma, Hx COPD Neurological Medical History: Denies: Hx Cerebrovascular Accident, Hx Seizures Endocrine Medical History: Reports: Hx Diabetes Mellitus Type 2 - "borderline" per pt Renal/ Medical History: Denies: Hx Peritoneal Dialysis GI Medical History: Reports: Hx Gastroesophageal Reflux Disease Musculoskeltal Medical History: Denies Hx Arthritis Psychiatric Medical History: Reports: Hx Depression - anxiety Past Surgical History: Reports: Hx Section - x2, Hx Gynecologic Surgery - novasure, vag repair, Hx Tonsillectomy, Hx Tubal Ligation, Other - Gastric sleeve surgery - Immunizations Immunizations up to date: No Hx Diphtheria, Pertussis, Tetanus Vaccination: No Physical Exam - Vital signs Vitals: Temp Pulse Resp BP Pulse Ox 97.9 F 76 18 170/79 H 100 12/31/18 20:19 12/31/18 20:19 12/31/18 20:19 12/31/18 20:19 12/31/18 20:19 Course - Vital Signs Vital signs: Temp Pulse Resp BP Pulse Ox 97.9 F 76 18 170/79 H 100 12/31/18 20:19 12/31/18 20:19 12/31/18 20:19 12/31/18 20:19 12/31/18 20:19 Doctor's Discharge - Discharge Referrals: NIGHAT TOWNSEND MD [Primary Care Provider] - Follow up as needed
--- NOTE | 2018-12-31 20:59 | ER Document Report ---
ED GI/ - General Chief Complaint: Abdominal Pain Stated Complaint: HERNIA PAIN,VOMITING Time Seen by Provider: 12/31/18 20:59 Primary Care Provider: NIGHAT TOWNSEND MD [ACTIVE STAFF] - Follow up as needed Mode of Arrival: Ambulatory Information source: Patient Notes: HISTORY OF PRESENT ILLNESS: Patient is a 48-year-old morbidly obese female with a past medical history of a large ventral hernia who presents with pain and tenderness in the lower abdomen around her hernia site. Patient reports that she has been seen by multiple providers and surgeons, has been told that she is not a candidate for surgery until she loses weight. Patient is currently status post gastric sleeve with minimal results. She denies constipation or diarrhea, reports having a normal bowel movement today, did have one episode of nonbloody and nonbilious emesis earlier as she says "was from the pain." Location: Lower abdomen Onset: Several days ago Alleviation: None Provocation: Movement Quality: Aching Radiation: None Severity: Moderate Timing: Constant History of abdominal surgery: Yes, x2 Associated symptoms: Nausea, denies constipation or diarrhea Last bowel movement: Today and normal REVIEW OF SYSTEMS: CONSTITUTIONAL : Denies fever or chills, no sweats. Denies recent illness. EENT: Denies eye, ear, throat, or mouth pain or symptoms. Denies nasal or sinus congestion. CARDIOVASCULAR: Denies chest pain. Denies swelling of the legs. RESPIRATORY: Denies cough, cold, or chest congestion. Denies shortness of breath or difficulty breathing. Denies wheezing. GASTROINTESTINAL: Positive for abdominal pain. Positive for nausea and vomiting but no diarrhea or constipation. GENITOURINARY: Denies difficulty urinating, painful urination, burning, fr equency, or blood in urine. FEMALE GENITOURINARY: Denies vaginal bleeding, abnormal or irregular periods. MUSCULOSKELETAL: Denies neck or back pain or joint pain or swelling. SKIN: Denies rash or skin lesions. HEMATOLOGIC : Denies easy bruising or bleeding. LYMPHATIC: Denies swollen, enlarged glands. NEUROLOGICAL: Denies altered mental status or loss of consciousness. Denies headache. Denies weakness or paralysis or loss of use of either side. Denies problems with gait or speech. Denies sensory or motor loss. PSYCHIATRIC: Denies anxiety or stress or depression. All other systems reviewed and negative. PHYSICAL EXAMINATION: GENERAL: Morbidly obese but well-appearing, well-nourished and in no acute distress. HEAD: Atraumatic, normocephalic. No scalp deformity, depression, or crepitance. EYES: Pupils are 3 mm and equal/round/reactive to light, extraocular movements intact, sclera anicteric, conjunctiva are normal. ENT: Nares patent bilaterally, oropharynx. Moist mucous membranes. No tonsil hypertrophy. NECK: Normal range of motion, supple without lymphadenopathy. LUNGS: Breath sounds present, equal, and clear to auscultation bilaterally. No wheezes, rales, or rhonchi. HEART: Regular rate and rhythm without murmurs, rubs, or gallops. 2+ peripheral pulses. Normal capillary refill. ABDOMEN: Extremely large ventral hernia across the lower abdomen that is tender and partially reducible. Soft, nondistended. Normoactive bowel sounds. No guarding, no rebound. No masses appreciated. BACK: Normal contour, no midline tenderness. Rectal exam deferred. GENITAL/PELVIC: Deferred. EXTREMITIES: Normal range of motion, no pitting or edema. No cyanosis. NEUROLOGICAL: No focal neurological deficits. Moves all extremities spontaneously and on command. PSYCH: Normal mood, normal affect. No suicidal thoughts/ideations. No homicidal thoughts/ideations. No hallucinations. SKIN: Warm, dry, normal turgor, no rashes or lesions noted. ASSESSMENT AND PLAN: This patient is a 48-year-old female who presents with diffuse lower abdominal tenderness surrounding a large ventral hernia. Concern for incarceration versus strangulation. 1. Will obtain labs, urine, and CT scan of the abdomen/pelvis. 2. Will give IV morphine for pain control. TRAVEL OUTSIDE OF THE [place] IN LAST 30 DAYS: No - HPI Patient complains to provider of: Abdominal pain Onset: Last week Timing/Duration: Gradual Quality of pain: Achy, Burning Severity at maximum: Severe Severity in ED: Moderate Pain Level: 3 Location: Other - Lower abdomen Vaginal bleeding (Compared to normal period): None Sexual history: Inactive Associated symptoms: None Exacerbated by: Movement Relieved by: Denies Similar symptoms previously: No Recently seen / treated by doctor: No - Related Data Allergies/Adverse Reactions: chlorpheniramine [From Abner GERMAIN] Allergy (Severe, Verified 10/01/18 06:31) headache, n and v dextromethorphan tannate [From [employer]] Allergy (Severe, Verified 10/01/18 06:31) headache, n and v pseudoephedrine tannate [From [employer]] Allergy (Severe, Verified 10/01/18 06:31) headache, n and v NSAIDS (Non-Steroidal Anti-Inflamma Adverse Reaction (Verified 10/01/18 07:39) Past Medical History - General Information source: Patient - Social History Smoking Status: Never Smoker Chew tobacco use (# tins/day): No Frequency of alcohol use: None Drug Abuse: None Lives with: Alone Family History: CAD, DM, Hypertension, Thyroid Disfunction Patient has suicidal ideation: No Patient has homicidal ideation: No - Past Medical History Cardiac Medical History: Reports: Hx Hypertension - no current meds Denies: Hx Coronary Artery Disease, Hx Heart Attack Pulmonary Medical History: Reports: Hx Bronchitis - hx of, Hx Pneumonia - hx of Denies: Hx Asthma, Hx COPD EENT Medical History: Reports: None Neurological Medical History: Reports: None. Denies: Hx Cerebrovascular Accident, Hx Seizures Endocrine Medical History: Reports: Hx Diabetes Mellitus Type 2 - "borderline" per pt Renal/ Medical History: Reports: None. Denies: Hx Peritoneal Dialysis Malignancy Medical History: Reports: None GI Medical History: Reports: Hx Gastroesophageal Reflux Disease Musculoskeletal Medical History: Reports None, Denies Hx Arthritis Skin Medical History: Reports None Psychiatric Medical History: Reports: Hx Depression - anxiety Traumatic Medical History: Reports: None Infectious Medical History: Reports: None Past Surgical History: Reports: Hx Section - x2, Hx Gynecologic Surgery - novasure, vag repair, Hx Tonsillectomy, Hx Tubal Ligation, Other - Gastric sleeve surgery - Immunizations Immunizations up to date: No Hx Diphtheria, Pertussis, Tetanus Vaccination: No Review of Systems - Review of Systems Constitutional: No symptoms reported EENT: No symptoms reported Cardiovascular: No symptoms reported Respiratory: No symptoms reported Gastrointestinal: See HPI, Abdominal pain, Nausea, Vomiting Genitourinary: No symptoms reported Female Genitourinary: No symptoms reported Musculoskeletal: No symptoms reported Skin: No symptoms reported Hematologic/Lymphatic: No symptoms reported Neurological/Psychological: No symptoms reported -: Yes All other systems reviewed and negative Physical Exam - Vital signs Vitals: Temp Pulse Resp BP Pulse Ox 97.9 F 76 18 170/79 H 100 12/31/18 20:19 12/31/18 20:19 12/31/18 20:19 12/31/18 20:19 12/31/18 20:19 Interpretation: Normal Course - Re-evaluation Re-evalutation: 01/01/19 01:16 CT scan shows no evidence of intra-abdominal pathology, large ventral hernia containing the cecum that is free moving without evidence of strain relation or incarceration. Will discharge the patient home with strict return precautions and follow-up with primary care. All results were explained to and discussed with the patient, and all questions addressed and answered. The patient voices both understanding and agreeing with the plan. - Vital Signs Vital signs: Temp Pulse Resp BP Pulse Ox 97.9 F 76 18 170/79 H 100 12/31/18 20:19 12/31/18 20:19 12/31/18 20:19 12/31/18 20:19 12/31/18 20:19 - Laboratory Result Diagrams: 12/31/18 20:45 12/31/18 20:45 Laboratory results interpreted by me: 12/31/18 12/31/18 12/31/18 20:45 20:45 20:45 WBC 11.3 H Lymph % (Auto) 12.0 L Absolute Neuts (auto) 9.2 H Seg Neutrophils % 81.1 H Glucose 129 H Total Protein 8.3 H Urine Protein 100 H Urine Ketones 80 H Urine Blood SMALL H Ur Leukocyte Esterase LARGE H - Diagnostic Test Radiology reviewed: Image reviewed, Reports reviewed Discharge - Discharge Clinical Impression: Ventral hernia Qualifiers: Obstruction and gangrene presence: without obstruction or gangrene Qualified Code(s): K43.9 - Ventral hernia without obstruction or gangrene Condition: Good Disposition: HOME, SELF-CARE Instructions: Abdominal Pain ([facility]) Additional Instructions: You have been evaluated in the Emergency Department for abdominal pain related to your hernia. While here, you had a CT scan that was normal and it is now safe to be discharged home. Please follow-up with your primary physician as instructed in one week to be rechecked. Return to the Emergency Department if you experience worsening pain, the inability to have a bowel movement, uncontrollable vomiting, or any other concerning symptoms. Prescriptions: Tramadol HCl [Ultram] 50 mg PO Q6HP PRN #28 tablet PRN Reason: For Pain Ondansetron [Zofran Odt 4 mg Tablet] 1 tab PO Q8HP PRN #30 tab.rapdis PRN Reason: For Nausea/Vomiting Referrals: NIGHAT TOWNSEND MD [ACTIVE STAFF] - Follow up as needed Print Language: Hungarian
[2018-12-31 21:04] LABS: ABSOLUTE EOSINOPHILS # (AUTO) 0.1 10^3/uL (0.0-0.6); ABSOLUTE LYMPHOCYTES (AUTO) 1.4 10^3/uL (0.5-4.7); ABSOLUTE MONOCYTES (AUTO) 0.6 10^3/uL (0.1-1.4); ABSOLUTE NEUT (AUTO) 9.2 10^3/uL (1.7-8.2); BASOPHILS % (AUTO) 0.4 % (0-2); EOSINOPHILS % (AUTO) 0.9 % (0-6); HEMATOCRIT 42.6 % (36.0-47.0); HEMOGLOBIN 14.3 g/dL (12.0-15.5); MEAN CORPUSCULAR HGB CONC 33.5 g/dL (32.0-36.0); MEAN CORPUSCULAR VOLUME 84 fl (80-97); MONOCYTES % (AUTO) 5.6 % (3-13); PLATELET COUNT 287 10^3/uL (150-450); RED CELL DISTRIBUTION WIDTH 13.2 % (11.5-14.0); SEGMENTED NEUTROPHILS % (AUTO) 81.1 % (42-78); TOTAL CELLS COUNTED % (AUTO) 100 %; WHITE BLOOD COUNT 11.3 10^3/uL (4.0-10.5)
[2018-12-31 21:16] LABS: APPEARANCE,URINE CLOUDY; BILIRUBIN,URINE NEGATIVE (NEGATIVE); COLOR,URINE AMBER; GLUCOSE, URINE NEGATIVE (NEGATIVE); KETONES,URINE 80 mg/dL (NEGATIVE); LEUKOCYTE ESTERASE,URINE LARGE (NEGATIVE); NITRITE,URINE NEGATIVE (NEGATIVE); PROTEIN,URINE 100 mg/dL (NEGATIVE); URINE SPECIFIC GRAVITY 1.025; UROBILINOGEN,URINE NEGATIVE mg/dL (<2.0)
[2018-12-31 21:22] LABS: ALBUMIN 4.8 g/dL (3.5-5.0); ALKALINE PHOSPHATASE 86 U/L (38-126); ANION GAP 9 (5-19); ASPARTATE AMINO TRANSFERASE 22 U/L (14-36); BILIRUBIN,DIRECT 0.1 mg/dL (0.0-0.4); BLOOD UREA NITROGEN 10 mg/dL (7-20); CALCIUM 10.1 mg/dL (8.4-10.2); CARBON DIOXIDE 29 mmol/L (22-30); CHLORIDE 99 mmol/L (98-107); GLUCOSE 129 mg/dL (75-110); POTASSIUM 4.3 mmol/L (3.6-5.0); TOTAL PROTEIN 8.3 g/dL (6.3-8.2)
--- NOTE | 2018-12-31 21:43 | RADIOLOGY REPORT (SQ) ---
XR ABDOMEN SUPINE AND ERECT WITH CHEST (ABD ACUTE SERIES) CLINICAL STATEMENT: Large ventral hernia increase in pain nv COMPARISON: 09/08/2018 FINDINGS: Cardiomediastinal silhouette is within normal limits. There is no focal lung consolidation or pleural effusion. No evidence of pulmonary edema or pneumothorax. IMPRESSION: No acute cardiopulmonary disease.
[2018-12-31] MEDS ORDERED: ONDANSETRON HCL INJ/PF 4 MG/2 ML SDV IV ONE (21:59)
[2018-12-31] MEDS ORDERED: MORPHINE SULFATE 10 MG/ML INJ IV ONE (21:59)
--- NOTE | 2019-01-01 00:59 | RADIOLOGY REPORT (SQ) ---
CLINICAL HISTORY: LOWER Abdominal pain COMPARISON: None. TECHNIQUE: CT ABDOMEN PELVIS WITH IV CONTRAST on 01/01/2019 12:00 AM CDT This exam was performed according to our departmental dose-optimization program, which includes automated exposure control, adjustment of the mA and/or kV according to patient size and/or use of iterative reconstruction technique. FINDINGS: Lower lungs are clear. Abdomen: The liver is normal in appearance. There is no biliary dilatation. There are postoperative changes of the upper stomach. Gallbladder is normal in appearance. The pancreas and spleen are normal in appearance. The adrenal glands and kidneys are unremarkable. Abdominal aorta is normal in course and caliber without aneurysm. There is no free air. There is no retroperitoneal adenopathy. Pelvis: The cecum is mobile and extends into the left lower quadrant ventral hernia. Urinary bladder is unremarkable. There is no free fluid. Uterus is normal in size. Appendix is normal, also in the left lower quadrant. There is a large multilobulated internal hernia within the pannus. Skeleton: There are no acute osseous findings. No suspicious bony lesions. IMPRESSION: No definite acute inflammatory process. Mobile cecum located in the left lower quadrant.
[2019-01-01 01:40] VITALS: BP 125/64
== END 2019-01-01 01:50 | disposition home or self-care (01) ==
LOC: ER 20:15
DX: K43.9 Ventral hernia without obstruction or gangrene (principal); R11.2 Nausea with vomiting, unspecified; E66.01 Morbid (severe) obesity due to excess calories; Z98.84 Bariatric surgery status; I10 Essential (primary) hypertension; Z88.8 Allergy status to other drugs, medicaments and biological substances
CPT/HCPCS: 36415; 85025; 80053; 81001; 74022; 74177; S0119; J2270

== ENCOUNTER 2019-02-24 06:45 | Emergency (ER) | payer MEDICAID ==
[2019-02-24 08:23] LABS: ABSOLUTE LYMPHOCYTES (AUTO) 0.6 10^3/uL (0.5-4.7); ABSOLUTE MONOCYTES (AUTO) 0.6 10^3/uL (0.1-1.4); ABSOLUTE NEUT (AUTO) 10.2 10^3/uL (1.7-8.2); BASOPHILS % (AUTO) 0.2 % (0-2); EOSINOPHILS % (AUTO) 0.1 % (0-6); HEMATOCRIT 40.8 % (36.0-47.0); HEMOGLOBIN 13.7 g/dL (12.0-15.5); LYMPHOCYTES % (AUTO) 5.4 % (13-45); MEAN CORPUSCULAR HEMOGLOBIN 28.4 pg (27.0-33.4); MEAN CORPUSCULAR HGB CONC 33.7 g/dL (32.0-36.0); MEAN CORPUSCULAR VOLUME 85 fl (80-97); MONOCYTES % (AUTO) 5.6 % (3-13); PLATELET COUNT 287 10^3/uL (150-450); RED BLOOD COUNT 4.83 10^6/uL (3.72-5.28); RED CELL DISTRIBUTION WIDTH 13.2 % (11.5-14.0); SEGMENTED NEUTROPHILS % (AUTO) 88.7 % (42-78); TOTAL CELLS COUNTED % (AUTO) 100 %; WHITE BLOOD COUNT 11.5 10^3/uL (4.0-10.5)
[2019-02-24 08:54] LABS: ALBUMIN 4.4 g/dL (3.5-5.0); ALKALINE PHOSPHATASE 78 U/L (38-126); ANION GAP 10 (5-19); ASPARTATE AMINO TRANSFERASE 21 U/L (14-36); BILIRUBIN,DIRECT 0.1 mg/dL (0.0-0.4); BILIRUBIN,TOTAL 0.7 mg/dL (0.2-1.3); BLOOD UREA NITROGEN 12 mg/dL (7-20); CALCIUM 9.7 mg/dL (8.4-10.2); CARBON DIOXIDE 28 mmol/L (22-30); CHLORIDE 101 mmol/L (98-107); GLUCOSE 126 mg/dL (75-110); POTASSIUM 4.2 mmol/L (3.6-5.0); TOTAL PROTEIN 7.7 g/dL (6.3-8.2)
[2019-02-24 08:58] LABS: APPEARANCE,URINE CLEAR; BILIRUBIN,URINE NEGATIVE (NEGATIVE); COLOR,URINE YELLOW; GLUCOSE, URINE NEGATIVE (NEGATIVE); KETONES,URINE NEGATIVE (NEGATIVE); LEUKOCYTE ESTERASE,URINE TRACE (NEGATIVE); NITRITE,URINE NEGATIVE (NEGATIVE); PROTEIN,URINE NEGATIVE (NEGATIVE); URINE SPECIFIC GRAVITY 1.012; UROBILINOGEN,URINE NEGATIVE mg/dL (<2.0)
[2019-02-24] MEDS ORDERED: DICYCLOMINE HCL INJ 20 MG/2 ML AMPULE IM ONE (08:59)
--- NOTE | 2019-02-24 09:40 | ER Document Report ---
ED General - General Chief Complaint: Abdominal Pain Stated Complaint: LEFT ABDOMINAL PAIN Time Seen by Provider: 02/24/19 08:41 Primary Care Provider: ALBA FERRERA MD [ACTIVE STAFF] - Follow up in 3-5 days MELISSA TAFOYA DO [Primary Care Provider] - Follow up in 3-5 days Notes: 48-year-old female presents with left abdominal pain at hernia site since last night. Patient states this feels like her usual hernia pain. States it is intermittent in nature. Patient had nausea/vomiting. Patient denies diarrhea/c onstipation, urinary symptoms, fever, chills. Pt states she has seen surgeon in past who told her she needed to lose weight before surgery could be done. Pt is still passing flatus. Pt states her nausea is currently resolved and abdominal pain has improved since coming to ER. TRAVEL OUTSIDE OF THE [place] IN LAST 30 DAYS: No - Related Data Allergies/Adverse Reactions: chlorpheniramine [From [employer]] Allergy (Severe, Verified 10/01/18 06:31) headache, n and v dextromethorphan tannate [From [employer] DS] Allergy (Severe, Verified 10/01/18 06:31) headache, n and v pseudoephedrine tannate [From [employer] [facility]] Allergy (Severe, Verified 10/01/18 06:31) headache, n and v NSAIDS (Non-Steroidal Anti-Inflamma Adverse Reaction (Verified 10/01/18 07:39) Home Medications: miralax prn. tramadol prn Past Medical History - Social History Smoking Status: Never Smoker Frequency of alcohol use: None Drug Abuse: None Family History: CAD, DM, Hypertension, Thyroid Disfunction Patient has suicidal ideation: No Patient has homicidal ideation: No - Past Medical History Cardiac Medical History: Reports: Hx Hypertension - no current meds Denies: Hx Coronary Artery Disease, Hx Heart Attack Pulmonary Medical History: Reports: Hx Bronchitis - hx of, Hx Pneumonia - hx of Denies: Hx Asthma, Hx COPD Neurological Medical History: Denies: Hx Cerebrovascular Accident, Hx Seizures Endocrine Medical History: Reports: Hx Diabetes Mellitus Type 2 - "borderline" per pt Renal/ Medical History: Denies: Hx Peritoneal Dialysis GI Medical History: Reports: Hx Gastroesophageal Reflux Disease Musculoskeletal Medical History: Denies Hx Arthritis Psychiatric Medical History: Reports: Hx Depression - anxiety Past Surgical History: Reports: Hx Section - x2, Hx Gynecologic Surgery - novasure, vag repair, Hx Tonsillectomy, Hx Tubal Ligation, Other - Gastric sleeve surgery - Immunizations Immunizations up to date: No Hx Diphtheria, Pertussis, Tetanus Vaccination: No Review of Systems - Review of Systems Notes: Constitutional: Negative for fever. HENT: Negative for sore throat. Eyes: Negative for visual changes. Cardiovascular: Negative for chest pain. Respiratory: Negative for shortness of breath. Gastrointestinal: Positive for abdominal pain, nausea, vomiting. Negative for diarrhea. Genitourinary: Negative for dysuria. Musculoskeletal: Negative for back pain. Skin: Negative for rash. Neurological: Negative for headaches, weakness or numbness. 10 point ROS negative except as marked above and in HPI. Physical Exam - Vital signs Vitals: Temp Pulse Resp BP Pulse Ox 98.1 F 88 18 179/82 H 100 02/24/19 06:56 02/24/19 06:56 02/24/19 06:56 02/24/19 06:56 02/24/19 06:56 - Notes Notes: GENERAL: Well-appearing, well-nourished and in no acute distress. HEAD: Atraumatic, normocephalic. EYES: Extraocular movements intact, sclera anicteric, conjunctiva are normal. NECK: Normal range of motion, supple without lymphadenopathy or JVD. LUNGS: Breath sounds clear to auscultation bilaterally and equal. No wheezes rales or rhonchi. HEART: Regular rate and rhythm without murmurs, rubs or gallops. ABDOMEN: Soft, nontender, morbidly obese. No nonreducible hernia. No guarding, no rebound. No masses appreciated. EXTREMITIES: Normal range of motion, no pitting or edema. No clubbing or cyanosis. NEUROLOGICAL: Cranial nerves II through XII grossly intact. Normal speech, normal gait. PSYCH: Normal mood, normal affect. SKIN: Warm, Dry, normal turgor, no rashes or lesions noted. Course - Re-evaluation Re-evalutation: 02/24/19 Low suspicion/risk for acute appendicitis, bowel obstruction, incarcerated/strangulated hernia acute cholecystitis, acute cholangitis, perforated diverticulitis, incarcerated hernia, pancreatitis, perforated ulcer, peritonitis, sepsis, pelvic inflammatory disease, ectopic , tubo- ovarian abscess, ovarian torsion, or other systemic emergent condition at this time. CBC, CMP, lipase, and UA ordered. Bentyl IM ordered. Pt declined anti- emetic. 02/24/19 11:23 Pain has improved. PO challenge passed. Patient is aware that her condition can change from initial presentation and she needs to monitor symptoms closely and seek medical attention if any acute changes. Conservative measures otherwise for symptoms. Recheck with OBGYN in 1-2 days. Recheck with your PCM in 2-3 days. Return to the ED with any worsening/concerning symptoms otherwise as reviewed in discharge. Patient is in agreement. - Vital Signs Vital signs: Temp Pulse Resp BP Pulse Ox 98.1 F 88 18 179/82 H 100 02/24/19 06:56 02/24/19 06:56 02/24/19 06:56 02/24/19 06:56 02/24/19 06:56 - Laboratory Result Diagrams: 02/24/19 08:12 02/24/19 08:12 Laboratory results interpreted by me: 02/24/19 02/24/19 02/24/19 08:12 08:12 08:45 WBC 11.5 H Lymph % (Auto) 5.4 L Absolute Neuts (auto) 10.2 H Seg Neutrophils % 88.7 H Creatinine 0.51 L Glucose 126 H Ur Leukocyte Esterase TRACE H Discharge - Discharge Clinical Impression: Abdominal pain Qualifiers: Abdominal location: generalized Qualified Code(s): R10.84 - Generalized abdominal pain Nausea & vomiting Qualifiers: Vomiting type: unspecified Vomiting Intractability: unspecified Qualified Code(s): R11.2 - Nausea with vomiting, unspecified Condition: Stable Disposition: HOME, SELF-CARE Instructions: Abdominal Pain ([facility]), Antinausea Medication ([facility]) Additional Instructions: You have been seen in the Emergency Department (ED) for abdominal pain. Your evaluation did not identify a clear cause of your symptoms but was generally reassuring. Please follow up with your doctor as soon as possible regarding today's emergent visit and the symptoms that are bothering you. Return to the ED if your abdominal pain worsens or fails to improve, you develop bloody vomiting, bloody diarrhea, you are unable to tolerate fluids due to vomiting, fever greater than 101, or other symptoms that concern you. Prescriptions: Ondansetron [Zofran Odt 4 mg Tablet] 4 mg PO Q4HP PRN #30 tab.rapdis PRN Reason: Dicyclomine HCl [Bentyl 20 mg Tablet] 20 mg PO QID #40 tablet Referrals: MELISSA TAFOYA DO [Primary Care Provider] - Follow up in 3-5 days ALBA FERRERA MD [ACTIVE STAFF] - Follow up in 3-5 days
[2019-02-24 11:48] VITALS: BP 146/76
== END 2019-02-24 11:34 | disposition home or self-care (01) ==
LOC: ER 06:45
DX: R10.84 Generalized abdominal pain (principal); R11.2 Nausea with vomiting, unspecified; I10 Essential (primary) hypertension; Z98.84 Bariatric surgery status; Z98.51 Tubal ligation status; Z87.19 Personal history of other diseases of the digestive system; Z88.8 Allergy status to other drugs, medicaments and biological substances
CPT/HCPCS: 99284; 96372; 36415; 83690; 85025; 80053; 81001; J0500

== ENCOUNTER 2019-09-06 21:55 | Emergency (ER) | payer MEDICAID ==
[2019-09-06] MEDS ORDERED: ONDANSETRON HCL INJ/PF 4 MG/2 ML SDV IV ONE (23:00)
--- NOTE | 2019-09-06 23:01 | ER Document Report ---
ED Medical Screen (RME) - General Stated Complaint: ABDOMINAL PAIN/VOMITING Time Seen by Provider: 09/06/19 22:56 Primary Care Provider: MELISSA TAFOYA DO [Primary Care Provider] - Follow up as needed Notes: HPI: 48-year-old female presenting for left lower abdominal pain concerned about an obstruction with a large abdominal wall hernia that she has had from her prior C-sections. Patient has had 3 episodes of vomiting today. States she did move her bowels once this morning but then has a constant sensation of needing to move her bowel without being able to do so. No fever. Patient states she does not follow with a surgeon for repair of this issue PHYSICAL EXAMINATION: Patient appears mildly uncomfortable. Difficult abdominal exam due to positioning in patients extremely large pannus. I have greeted and performed a rapid initial assessment of this patient. A comprehensive ED assessment and evaluation of the patient, analysis of test results and completion of medical decision making process will be conducted by an additional ED providers. TRAVEL OUTSIDE OF THE [place] IN LAST 30 DAYS: No - Related Data Allergies/Adverse Reactions: chlorpheniramine [From [employer] [facility]] Allergy (Severe, Verified 10/01/18 06:31) headache, n and v dextromethorphan tannate [From [employer] [facility]] Allergy (Severe, Verified 10/01/18 06:31) headache, n and v pseudoephedrine tannate [From [employer] [facility]] Allergy (Severe, Verified 10/01/18 06:31) headache, n and v NSAIDS (Non-Steroidal Anti-Inflamma Adverse Reaction (Verified 10/01/18 07:39) Past Medical History - Past Medical History Cardiac Medical History: Reports: Hx Hypertension - no current meds Denies: Hx Coronary Artery Disease, Hx Heart Attack Pulmonary Medical History: Reports: Hx Bronchitis - hx of, Hx Pneumonia - hx of Denies: Hx Asthma, Hx COPD Neurological Medical History: Denies: Hx Cerebrovascular Accident, Hx Seizures Endocrine Medical History: Reports: Hx Diabetes Mellitus Type 2 - "borderline" per pt Renal/ Medical History: Denies: Hx Peritoneal Dialysis GI Medical History: Reports: Hx Gastroesophageal Reflux Disease Musculoskeltal Medical History: Denies Hx Arthritis Psychiatric Medical History: Reports: Hx Depression - anxiety Past Surgical History: Reports: Hx Section - x2, Hx Gynecologic Surgery - novasure, vag repair, Hx Tonsillectomy, Hx Tubal Ligation, Other - Gastric sleeve surgery - Immunizations Immunizations up to date: No Hx Diphtheria, Pertussis, Tetanus Vaccination: No Physical Exam - Vital signs Vitals: Temp Pulse Resp BP Pulse Ox 98.3 F 83 22 H 157/90 H 100 09/06/19 22:03 09/06/19 22:03 09/06/19 22:03 09/06/19 22:03 09/06/19 22:03 Course - Vital Signs Vital signs: Temp Pulse Resp BP Pulse Ox 98.3 F 83 22 H 157/90 H 100 09/06/19 22:03 09/06/19 22:03 09/06/19 22:03 09/06/19 22:03 09/06/19 22:03 Doctor's Discharge - Discharge Referrals: MELISSA TAFOYA DO [Primary Care Provider] - Follow up as needed
[2019-09-07 00:01] LABS: ABSOLUTE LYMPHOCYTES (AUTO) 0.9 10^3/uL (0.5-4.7); ABSOLUTE MONOCYTES (AUTO) 0.2 10^3/uL (0.1-1.4); ABSOLUTE NEUT (AUTO) 9.5 10^3/uL (1.7-8.2); BASOPHILS % (AUTO) 0.2 % (0-2); EOSINOPHILS % (AUTO) 0.4 % (0-6); HEMATOCRIT 41.6 % (36.0-47.0); HEMOGLOBIN 14.3 g/dL (12.0-15.5); LYMPHOCYTES % (AUTO) 8.8 % (13-45); MEAN CORPUSCULAR HEMOGLOBIN 28.7 pg (27.0-33.4); MEAN CORPUSCULAR HGB CONC 34.3 g/dL (32.0-36.0); MEAN CORPUSCULAR VOLUME 84 fl (80-97); MONOCYTES % (AUTO) 2.3 % (3-13); PLATELET COUNT 272 10^3/uL (150-450); RED BLOOD COUNT 4.97 10^6/uL (3.72-5.28); RED CELL DISTRIBUTION WIDTH 13.2 % (11.5-14.0); SEGMENTED NEUTROPHILS % (AUTO) 88.3 % (42-78); TOTAL CELLS COUNTED % (AUTO) 100 %; WHITE BLOOD COUNT 10.8 10^3/uL (4.0-10.5)
[2019-09-07 00:11] LABS: APPEARANCE,URINE SLIGHTLY-CLOUDY; BILIRUBIN,URINE NEGATIVE (NEGATIVE); COLOR,URINE YELLOW; GLUCOSE, URINE NEGATIVE (NEGATIVE); KETONES,URINE NEGATIVE (NEGATIVE); LEUKOCYTE ESTERASE,URINE TRACE (NEGATIVE); NITRITE,URINE NEGATIVE (NEGATIVE); PROTEIN,URINE NEGATIVE (NEGATIVE); URINE SPECIFIC GRAVITY 1.021; UROBILINOGEN,URINE NEGATIVE mg/dL (<2.0)
[2019-09-07 00:24] LABS: ALBUMIN 4.6 g/dL (3.5-5.0); ALKALINE PHOSPHATASE 87 U/L (38-126); ANION GAP 6 (5-19); ASPARTATE AMINO TRANSFERASE 22 U/L (14-36); BILIRUBIN,TOTAL 0.7 mg/dL (0.2-1.3); BLOOD UREA NITROGEN 14 mg/dL (7-20); CALCIUM 9.8 mg/dL (8.4-10.2); CARBON DIOXIDE 30 mmol/L (22-30); CHLORIDE 99 mmol/L (98-107); GLUCOSE 150 mg/dL (75-110); POTASSIUM 4.7 mmol/L (3.6-5.0); TOTAL PROTEIN 8.1 g/dL (6.3-8.2)
[2019-09-07] MEDS ORDERED: NORMAL SALINE 1000 ML 1,000 ML IV ONE (01:57)
[2019-09-07] MEDS ORDERED: HYDROMORPHONE HCL INJ/PF 2 MG/ML AMPULE IV ONE (01:58)
[2019-09-07] MEDS ORDERED: ONDANSETRON HCL INJ/PF 4 MG/2 ML SDV ONE (02:06)
--- NOTE | 2019-09-07 03:17 | ER Document Report ---
Entered by IRMA CASTRO SCRIBE 09/07/19 0145 Acting as scribe for:ALICIA CAZARES IV, MD ED GI/ - General Chief Complaint: Abdominal Pain Stated Complaint: ABDOMINAL PAIN/VOMITING Time Seen by Provider: 09/06/19 22:56 Primary Care Provider: MELISSA TAFOYA DO [Primary Care Provider] - Follow up as needed Mode of Arrival: Ambulatory Information source: Patient Notes: This 48 year old female patient presents to the ED today with complaints of lower abdominal pain that started yesterday. Patient states that she has an incisional hernia due to prior C-sections. Patient reports that she is concerned that she may have a possible obstruction. She notes x3 episodes of vomiting yesterday. She reports that she would usually wait for the pain to resolve on its own at home, but states that the pain was too severe, so she decided to come to the ED. Denies fever. TRAVEL OUTSIDE OF THE [place] IN LAST 30 DAYS: No - Related Data Allergies/Adverse Reactions: chlorpheniramine [From [employer] [facility]] Allergy (Severe, Verified 10/01/18 06:31) headache, n and v dextromethorphan tannate [From [employer] DS] Allergy (Severe, Verified 10/01/18 06:31) headache, n and v pseudoephedrine tannate [From [employer] DS] Allergy (Severe, Verified 10/01/18 06:31) headache, n and v NSAIDS (Non-Steroidal Anti-Inflamma Adverse Reaction (Verified 10/01/18 07:39) Past Medical History - General Information source: Patient, [facility] Records - Social History Smoking Status: Never Smoker Cigarette use (# per day): No Chew tobacco use (# tins/day): No Smoking Education Provided: No Frequency of alcohol use: None Drug Abuse: None Lives with: Family Family History: Reviewed & Not Pertinent, CAD, DM, Hypertension, Thyroid Dis function Patient has suicidal ideation: No Patient has homicidal ideation: No - Past Medical History Cardiac Medical History: Reports: Hx Hypertension - no current meds Pulmonary Medical History: Reports: Hx Bronchitis, Hx Pneumonia Endocrine Medical History: Reports: Hx Diabetes Mellitus Type 2 - "borderline" per pt GI Medical History: Reports: Hx Gastroesophageal Reflux Disease Psychiatric Medical History: Reports: Hx Anxiety, Hx Depression Past Surgical History: Reports: Hx Section - x2, Hx Gastric Bypass Surgery - gastric sleeve, Hx Gynecologic Surgery - novasure, vag repair, Hx Tonsillectomy, Hx Tubal Ligation - Immunizations Immunizations up to date: No Hx Diphtheria, Pertussis, Tetanus Vaccination: No Review of Systems - Review of Systems Constitutional: See HPI. denies: Fever EENT: No symptoms reported Cardiovascular: No symptoms reported Respiratory: No symptoms reported Gastrointestinal: See HPI, Abdominal pain, Vomiting Genitourinary: No symptoms reported Female Genitourinary: No symptoms reported Musculoskeletal: No symptoms reported Skin: No symptoms reported Hematologic/Lymphatic: No symptoms reported Neurological/Psychological: No symptoms reported -: Yes All other systems reviewed and negative Physical Exam - Vital signs Vitals: Temp Pulse Resp BP Pulse Ox 98.3 F 83 22 H 157/90 H 100 09/06/19 22:03 09/06/19 22:03 09/06/19 22:03 09/06/19 22:03 09/06/19 22:03 - General General appearance: Alert - HEENT Head: Normocephalic, Atraumatic Eyes: Normal Pupils: PERRL - Respiratory Respiratory status: No respiratory distress Chest status: Nontender Breath sounds: Normal Chest palpation: Normal - Cardiovascular Rhythm: Regular Heart sounds: Normal auscultation Murmur: No Friction rub: No Gallop: None auscultated - Abdominal Inspection: Other - Large infraumbilical hernia that is not reducible. Bowel sounds: Normal Tenderness: Tender - Tenderness to palpation near site of hernia Organomegaly: No organomegaly - Back Back: Normal, Nontender - Extremities General upper extremity: Normal inspection General lower extremity: Normal inspection - Neurological Neuro grossly intact: Yes Orientation: AAOx4 - Psychological Associated symptoms: Normal affect, Normal mood - Skin Skin Temperature: Warm Skin Moisture: Dry Skin Color: Normal Course - Re-evaluation Re-evalutation: 09/07/19 05:39 Results of ED MSE discussed with patient. All questions were answered prior to discharge. Emergency signs and symptoms, reasons to return to the emergency department discussed with patient. - Vital Signs Vital signs: Temp Pulse Resp BP Pulse Ox 98.7 F 76 20 130/61 H 94 09/07/19 01:06 09/07/19 01:06 09/07/19 01:06 09/07/19 01:06 09/07/19 01:06 - Laboratory Result Diagrams: 09/06/19 23:43 09/06/19 23:43 Laboratory results interpreted by me: 09/06/19 09/06/19 09/06/19 23:43 23:43 23:43 WBC 10.8 H Lymph % (Auto) 8.8 L [place] % (Auto) 2.3 L Absolute Neuts (auto) 9.5 H Seg Neutrophils % 88.3 H Sodium 135.0 L Glucose 150 H Ur Leukocyte Esterase TRACE H - Diagnostic Test Radiology reviewed: Reports reviewed Discharge - Discharge Clinical Impression: Abdominal pain Qualifiers: Abdominal location: unspecified location Qualified Code(s): R10.9 - Unspecified abdominal pain Ventral hernia Qualifiers: Obstruction and gangrene presence: without obstruction or gangrene Qualified Code(s): K43.9 - Ventral hernia without obstruction or gangrene Condition: Good Disposition: HOME, SELF-CARE Instructions: Abdominal Pain ([facility]) Additional Instructions: Return to the Emergency Department without delay if any worse. HOME CARE INSTRUCTIONS & INFORMATION: Thank you for choosing us for your medical needs. We hope you're satisfied with the care you received. After you leave, you must properly care for your problem and, at the same time, observe its progress. Any condition can change. Some illnesses can change rapidly over hours or days. If your condition worsens, return to the Emergency Department or see your physician promptly. ABOUT YOUR X-RAYS AND EKG'S: If you had an EKG or X-rays taken, they have been read by the Emergency Physician. The X-rays and EKG's will also be read by a Radiologist or Facsimile Operator within 24 hours. If discrepancies are noted, you w ill be notified by telephone. Please be certain the ED has a correct telephone number & address where you can be reached. Also, realize that some fractures or abnormalities do not show up on initial X-rays. If your symptoms continue, see your physician. ABOUT YOUR LABORATORY TEST: If you had laboratory tests, the results have been reviewed by the Emergency Physician. Some test results (for example cultures) may not be available for several days. You will be contacted if any test result shows you need additional treatment. Please be certain the ED has a correct telephone number and address where you can be reached. ABOUT YOUR MEDICATIONS: You will receive instructions on how to take your medicine on the prescription label you receive. Additional information may be provided by the Pharmacy. If you have questions afterwards, call the ED for clarification or further instructions. Some prescribed medications may cause drowsiness. Do not perform tasks such as driving a car or operating machinery without consulting your Pharmacist. If you feel you need a refill of pain medic ation, your condition will need re-evaluation. Please do not call for a refill of any medication. ABOUT YOUR SIGNATURE: Signature of this document acknowledges to followin. Understanding that you received emergency treatment and that you may be released before al medical problems are known or treated. Please be certain the ED has a correct phone number & address where you can be reached. 2. Acknowledgement that you will arrange for follow-up care as recommended. 3. Authorization for the Emergency Physician to provide information to your follow-up Physician in order to maximize your care. AT ANY TIME, IF YOUR SYMPTOMS CHANGE SIGNIFICANTLY OR WORSEN OR YOU DEVELOP NEW SYMPTOMS, RETURN TO THE EMERGENCY DEPARTMENT IMMEDIATELY FOR RE-EVALUATION. OUR GOAL IS TO PROVIDE EXCELLENT MEDICAL CARE! WE HOPE THAT WE HAVE MET YOUR EXPECTATIONS DURING YOUR EMERGENCY DEPARTMENT VISIT AND THAT YOU FEEL YOU HAVE RECEIVED EXCELLENT CARE! Hernia You have a hernia. A hernia forms at a weak spot in the abdominal wall. Bowel slips out of the abdominal cavity into the weak spot. Hernias tend to occur in the groin (especially in males), the fold of the thigh, the naval, or at a surgical scar. Surgical repair of the defect is usually necessary. The problem tends to get worse. It's important that you follow up as recommended. For now, you should avoid straining, heavy lifting, and vigorous exercise. Complications occur if the hernia becomes tightly stuck. You should come back immediately if the area becomes increasingly painful, swollen, or discolored, or if you develop abdominal pain and vomiting. Referrals: MELISSA TAFOYA, DO [Primary Care Provider] - Follow up as needed I personally performed the services described in the documentation, reviewed and edited the documentation which was dictated to the scribe in my presence, and it accurately records my words and actions.
--- NOTE | 2019-09-07 05:12 | RADIOLOGY REPORT (SQ) ---
CT abdomen and pelvis with contrast on 09/07/2019 at 4:04 AM CLINICAL INDICATION: Lower abdominal pain TECHNIQUE: Multiple axial images are obtained throughout the abdomen and pelvis following the administration of IV and oral contrast. This exam was performed according to our departmental dose-optimization program, which includes automated exposure control, adjustment of the mA and/or kV according to patient size and/or use of iterative reconstruction technique. Total DLP is 2435.9 mGy*cm. COMPARISON: 01/01/2019 FINDINGS: Abdomen: The lung bases are clear. The patient is status post gastric sleeve surgery. There is a very small hiatal hernia. There is fatty infiltration of the liver. The solid abdominal organs are otherwise unremarkable. There is no abdominal adenopathy. There is no free fluid or free air within the abdomen. The abdominal portion of the GI tract is otherwise unremarkable. Pelvis: There is again noted a large multilobulated anterior pelvic wall hernia containing multiple loops of nonobstructed colon and small bowel. The ascending colon and cecum is noted to extend into this hernia with the cecum in the left aspect of this hernia in the patient's anterior left lower quadrant with a normal appendix within the hernia. There is no evidence of obstruction. Pelvic organs appear unremarkable by CT. No free fluid is noted in the pelvis. There is no pelvic adenopathy. No acute bony abnormality is noted. IMPRESSION: 1. Stable appearance of a very large anterior pelvic wall hernia that is multilobulated and containing multiple loops of nonobstructed bowel. 2. Mild fatty infiltration of the liver.
[2019-09-07 05:54] VITALS: BP 126/68
== END 2019-09-07 05:57 | disposition home or self-care (01) ==
LOC: ER 21:55
DX: K43.9 Ventral hernia without obstruction or gangrene (principal); R10.9 Unspecified abdominal pain; R11.10 Vomiting, unspecified; R10.30 Lower abdominal pain, unspecified; Z88.8 Allergy status to other drugs, medicaments and biological substances; I10 Essential (primary) hypertension; E11.9 Type 2 diabetes mellitus without complications
CPT/HCPCS: 99284; 96361; 96374; 96375; 36415; 83690; 85025; 81025; 80053; 81001; 74177; J1170; J2405; J7030

== ENCOUNTER 2020-01-03 12:49 | Emergency (ER) | payer MEDICAID ==
--- NOTE | 2020-01-03 13:26 | ER Document Report ---
ED Medical Screen (RME) - General Chief Complaint: Abdominal Pain Stated Complaint: ABDOMINAL PAIN Time Seen by Provider: 01/03/20 13:17 Primary Care Provider: MELISSA TAFOYA DO [Primary Care Provider] - Follow up as needed Mode of Arrival: Ambulatory Information source: Patient Notes: 49-year-old female presented to ED for complaint of severe lower left abdominal pain. She states is getting worse and the day progressed. She has had several stools but the pain is still getting worse and worse. She states when she does have stool she has excruciating hard sharp pain on the left side of her abdomen. 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 We will have her get her appointment. She is a former smoker that she does not drink or use any illicit drugs. She is alert oriented respirations regular nonlabored speaking in full sentences. I have greeted and performed a rapid initial assessment of this patient. A comprehensive ED assessment and evaluation of the patient, analysis of test results and completion of medical decision making process will be conducted by an additional ED providers. TRAVEL OUTSIDE OF THE [place] IN LAST 30 DAYS: No - Related Data Allergies/Adverse Reactions: chlorpheniramine [From [facility]] Allergy (Severe, Verified 10/01/18 06:31) headache, n and v dextromethorphan tannate [From [employer] DS] Allergy (Severe, Verified 10/01/18 06:31) headache, n and v pseudoephedrine tannate [From [employer] DS] Allergy (Severe, Verified 10/01/18 06: 31) headache, n and v NSAIDS (Non-Steroidal Anti-Inflamma Adverse Reaction (Verified 10/01/18 07:39) Past Medical History - Past Medical History Cardiac Medical History: Reports: Hx Hypertension - no current meds Denies: Hx Coronary Artery Disease, Hx Heart Attack Pulmonary Medical History: Reports: Hx Bronchitis, Hx Pneumonia Denies: Hx Asthma, Hx COPD Neurological Medical History: Denies: Hx Cerebrovascular Accident, Hx Seizures Endocrine Medical History: Reports: Hx Diabetes Mellitus Type 2 - "borderline" per pt Renal/ Medical History: Denies: Hx Peritoneal Dialysis GI Medical History: Reports: Hx Gastroesophageal Reflux Disease Musculoskeltal Medical History: Denies Hx Arthritis Psychiatric Medical History: Reports: Hx Anxiety, Hx Depression Past Surgical History: Reports: Hx Section - x2, Hx Gastric Bypass Surgery - gastric sleeve, Hx Gynecologic Surgery - novasure, vag repair, Hx Tonsillectomy, Hx Tubal Ligation, Other - Gastric sleeve surgery - Immunizations Immunizations up to date: No Hx Diphtheria, Pertussis, Tetanus Vaccination: No Physical Exam - Vital signs Vitals: Temp Pulse Resp BP Pulse Ox 97.7 F 77 20 165/79 H 100 01/03/20 13:05 01/03/20 13:05 01/03/20 13:05 01/03/20 13:05 01/03/20 13:05 Course - Vital Signs Vital signs: Temp Pulse Resp BP Pulse Ox 97.7 F 77 20 165/79 H 100 01/03/20 13:05 01/03/20 13:05 01/03/20 13:05 01/03/20 13:05 01/03/20 13:05 Doctor's Discharge - Discharge Referrals: MELISSA TAFOYA DO [Primary Care Provider] - Follow up as needed
[2020-01-03 14:10] LABS: APPEARANCE,URINE CLEAR; BILIRUBIN,URINE NEGATIVE (NEGATIVE); COLOR,URINE YELLOW; GLUCOSE, URINE NEGATIVE (NEGATIVE); KETONES,URINE 20 mg/dL (NEGATIVE); LEUKOCYTE ESTERASE,URINE SMALL (NEGATIVE); NITRITE,URINE NEGATIVE (NEGATIVE); PROTEIN,URINE NEGATIVE (NEGATIVE); URINE SPECIFIC GRAVITY 1.015; UROBILINOGEN,URINE NEGATIVE mg/dL (<2.0)
[2020-01-03 14:11] LABS: ABSOLUTE BASOPHILS # (AUTO) 0.1 10^3/uL (0.0-0.2); ABSOLUTE EOSINOPHILS # (AUTO) 0.1 10^3/uL (0.0-0.6); ABSOLUTE LYMPHOCYTES (AUTO) 1.3 10^3/uL (0.5-4.7); ABSOLUTE MONOCYTES (AUTO) 0.6 10^3/uL (0.1-1.4); ABSOLUTE NEUT (AUTO) 10.2 10^3/uL (1.7-8.2); BASOPHILS % (AUTO) 0.6 % (0-2); EOSINOPHILS % (AUTO) 0.7 % (0-6); HEMATOCRIT 42.9 % (36.0-47.0); HEMOGLOBIN 13.2 g/dL (12.0-15.5); LYMPHOCYTES % (AUTO) 10.4 % (13-45); MEAN CORPUSCULAR HGB CONC 30.9 g/dL (32.0-36.0); MEAN CORPUSCULAR VOLUME 84 fl (80-97); MONOCYTES % (AUTO) 4.5 % (3-13); RED BLOOD COUNT 5.09 10^6/uL (3.72-5.28); RED CELL DISTRIBUTION WIDTH 13.3 % (11.5-14.0); SEGMENTED NEUTROPHILS % (AUTO) 83.8 % (42-78); TOTAL CELLS COUNTED % (AUTO) 100 %; WHITE BLOOD COUNT 12.2 10^3/uL (4.0-10.5)
--- NOTE | 2020-01-03 14:18 | RADIOLOGY REPORT (SQ) ---
EXAM DESCRIPTION: ACUTE ABDOMEN SERIES IMAGES COMPLETED DATE/TIME: 01/03/2020 1:57 pm REASON FOR STUDY: Severe abdominal pain right ventricle hernia COMPARISON: 12/31/2018. NUMBER OF VIEWS: Three views. TECHNIQUE: Frontal chest, supine abdomen and upright/decubitus abdomen radiographic images acquired. LIMITATIONS: None. FINDINGS: CHEST: Lungs clear of infiltrates. FREE AIR: None. No abnormal gas collections. BOWEL GAS PATTERN: Nonobstructive pattern. No dilated loops or air fluid levels. CALCIFICATIONS: No suspicious calcifications. HARDWARE: None in the abdomen. SOFT TISSUES: No gross mass or suggestion of organomegaly. BONES: No acute fracture. Degenerative changes in the spine. No worrisome bone lesions. OTHER: No other significant finding. IMPRESSION: NO RADIOGRAPHIC EVIDENCE FOR ACUTE ABDOMINAL DISEASE. TECHNICAL DOCUMENTATION: JOB ID: [id number] 2010 [employer]- All Rights Reserved Reading location - IP/workstation name: [email or web address]
[2020-01-03 14:20] LABS: ALBUMIN 4.8 g/dL (3.5-5.0); ALKALINE PHOSPHATASE 89 U/L (38-126); ANION GAP 12 (5-19); ASPARTATE AMINO TRANSFERASE 24 U/L (14-36); BILIRUBIN,DIRECT 0.3 mg/dL (0.0-0.4); BILIRUBIN,TOTAL 1.1 mg/dL (0.2-1.3); BLOOD UREA NITROGEN 12 mg/dL (7-20); CALCIUM 9.8 mg/dL (8.4-10.2); CARBON DIOXIDE 25 mmol/L (22-30); CHLORIDE 99 mmol/L (98-107); GLUCOSE 128 mg/dL (75-110); POTASSIUM 4.6 mmol/L (3.6-5.0); TOTAL PROTEIN 8.2 g/dL (6.3-8.2)
[2020-01-03 14:50] LABS: PLATELET COUNT 207 10^3/uL (150-450)
[2020-01-03] MEDS ORDERED: NORMAL SALINE 1000 ML 1,000 ML IV ONE (16:00)
[2020-01-03] MEDS ORDERED: MORPHINE SULFATE 10 MG/ML INJ IV ONE (16:00)
[2020-01-03] MEDS ORDERED: ONDANSETRON HCL INJ/PF 4 MG/2 ML SDV IV ONE (16:00)
--- NOTE | 2020-01-03 16:01 | ER Document Report ---
ED General <ROSANA BOX - Last Filed: 01/04/20 01:19> - General Mode of Arrival: Ambulatory TRAVEL OUTSIDE OF THE [place] IN LAST 30 DAYS: No <ELAN AVILA - Last Filed: 01/06/20 12:18> - General Chief Complaint: Abdominal Pain Stated Complaint: ABDOMINAL PAIN Time Seen by Provider: 01/03/20 13:17 Primary Care Provider: MALATHI LEI MD [ACTIVE STAFF] - 01/05/20 OLAF TAVAREZ MD [ACTIVE STAFF] - Follow up as needed MELISSA TAFOYA DO [NO LOCAL MD] - Follow up as needed - [facility] Notes: 47-year-old female with a history of left incisional hernia presents this morning with sudden onset abdominal pain at 0430 this morning as well as vomiting at least twice this morning. Reports pain is become progressively worse. Is not tried any [id number] medications. Reports her last bowel movement was this morning, normal and tolerating contacts. Patient states that she has not been seen by a surgeon due to lack of insurance to have her hernia repaired. She is unable to reduce her hernia. Reports pain is 4 out of 5, throbbing achy and sharp. Patient states she has these exacerbations of her hernial pain that brings her to the emergency which she needs more medication than she can get outpatient. Denies any chest pain, shortness of breath, headache, blurred vision double vision loss of vision, fever chills, weakness, bowel or bladder dysfunction, saddle anesthesia, hematuria, numbness or tingling down her lower legs, headaches, lightheadedness, dizziness. Reports pain is only where she is having the hernia at this time. MEDICATIONS: I agree with the patient medications as charted by the RN. ALLERGIES: I agree with the allergies as charted by the RN. PAST MEDICAL HISTORY/PAST SURGICAL HISTORY: Reviewed and agree as charted by RN. SOCIAL HISTORY: Reviewed and agree as charted by RN. FAMILY HISTORY: No significant familial comorbid conditions directly related to patient complaint EXAM: Reviewed vital signs as charted by RN. REVIEW OF SYSTEMS:reviewed vital signs by RN CONSTITUTIONAL : Denies fever, chills, or sweats. Denies recent illness. EENT: Denies eye, ear, throat, or mouth pain or symptoms. Denies nasal or sinus congestion or discharge. Denies throat, tongue, or mouth swelling or difficulty swallowing. CARDIOVASCULAR: Denies chest pain. Denies palpitations or racing or irregular heart beat. Denies ankle edema. RESPIRATORY: Denies cough, cold, or chest congestion. Denies shortness of breath, difficulty breathing, or wheezing. GASTROINTESTINAL: reports abdominal pain. denies distention. Denies nausea, reports vomiting. denies diarrhea. Denies blood in vomitus, stools, or per rectum. Denies black, tarry stools. Denies constipation. GENITOURINARY: Denies difficulty urinating, painful urination, burning, frequency, blood in urine, or discharge. FEMALE GENITOURINARY: Denies vaginal bleeding, heavy or abnormal periods, ir regular periods. Denies vaginal discharge or odor. MUSCULOSKELETAL: Denies back or neck pain or stiffness. Denies joint pain or swelling. SKIN: Denies rash, lesions or sores. HEMATOLOGIC : Denies easy bruising or bleeding. LYMPHATIC: Denies swollen, enlarged glands. NEUROLOGICAL: Denies confusion or altered mental status. Denies passing out or loss of consciousness. Denies dizziness or lightheadedness. Denies headache. Denies weakness or paralysis or loss of use of either side. Denies problems with gait or speech. Denies sensory loss, numbness, or tingling. Denies seizures. PSYCHIATRIC: Denies anxiety or stress. Denies depression, suicidal ideation, or homicidal ideation. ALL OTHER SYSTEMS REVIEWED AND NEGATIVE. PHYSICAL EXAMINATION: GENERAL: Well-appearing, well-nourished and in no acute distress. HEAD: Atraumatic, normocephalic. EYES: Pupils equal round and reactive to light, extraocular movements intact, conjunctiva are normal. ENT: Nares patent, oropharynx clear without exudates. Moist mucous membranes. NECK: Normal range of motion, supple without lymphadenopathy LUNGS: Breath sounds clear to auscultation bilaterally and equal. No wheezes rales or rhonchi. HEART: Regular rate and rhythm without murmurs ABDOMEN: soft, nondistended abdomen with tenderness to left lower quadrant. Large infra umbilical hernia that cannot be reduced. no guarding, no rebound. No masses appreciated. Female : deferred Musculoskeletal: Normal range of motion, no pitting or edema. No cyanosis. NEUROLOGICAL: Cranial nerves grossly intact. Normal speech, normal gait. Normal sensory, motor exams PSYCH: Normal mood, normal affect. SKIN: Warm, Dry, normal turgor, no rashes or lesions noted. Dictation was performed using [employer] voice recognition software (ELAN AVILA) - Related Data Allergies/Adverse Reactions: chlorpheniramine [From [employer]] Allergy (Severe, Verified 10/01/18 06:31) headache, n and v dextromethorphan tannate [From [employer]] Allergy (Severe, Verified 10/01/18 06:31) headache, n and v pseudoephedrine tannate [From [employer]] Allergy (Severe, Verified 10/01/18 06:31) headache, n and v NSAIDS (Non-Steroidal Anti-Inflamma Adverse Reaction (Verified 10/01/18 07:39) Past Medical History - Social History Smoking Status: Unknown if Ever Smoked <ROSANA BOX - Last Filed: 01/04/20 01:19> - General Information source: Patient - Social History Family History: Reviewed & Not Pertinent, CAD, DM, Hypertension, Thyroid Disfunction - Past Medical History Cardiac Medical History: Reports: Hx Hypertension - no current meds Denies: Hx Coronary Artery Disease, Hx Heart Attack Pulmonary Medical History: Reports: Hx Bronchitis, Hx Pneumonia Denies: Hx Asthma, Hx COPD Neurological Medical History: Denies: Hx Cerebrovascular Accident, Hx Seizures Endocrine Medical History: Reports: Hx Diabetes Mellitus Type 2 - "borderline" per pt Renal/ Medical History: Denies: Hx Peritoneal Dialysis GI Medical History: Reports: Hx Gastroesophageal Reflux Disease Musculoskeletal Medical History: Denies Hx Arthritis Psychiatric Medical History: Reports: Hx Anxiety, Hx Depression Past Surgical History: Reports: Hx Section - x2, Hx Gastric Bypass Surgery - gastric sleeve, Hx Gynecologic Surgery - novasure, vag repair, Hx Tonsillectomy, Hx Tubal Ligation, Other - Gastric sleeve surgery - Immunizations Immunizations up to date: No Hx Diphtheria, Pertussis, Tetanus Vaccination: No <ELAN AVILA - Last Filed: 01/06/20 12:18> Physical Exam - Vital signs Vitals: Temp Pulse Resp BP Pulse Ox 97.7 F 77 20 165/79 H 100 01/03/20 13:05 01/03/20 13:05 01/03/20 13:05 01/03/20 13:05 01/03/20 13:05 Course - Laboratory Result Diagrams: 01/03/20 13:40 01/03/20 13:40 <ROSANA BOX - Last Filed: 01/04/20 01:19> - Laboratory Result Diagrams: 01/03/20 13:40 01/03/20 13:40 <ELAN AVILA - Last Filed: 01/06/20 12:18> - Re-evaluation Re-evalutation: 01/03/20 20:05 Bedside report given to me by Elan Avila NP. 01/03/20 20:41 CT of the abdomen pelvis with IV and oral contrast show a normal ventral hernia. No obstruction or strangulation noted. Advised patient to follow-up with surgery on an outpatient basis. Patient already has a close mean and states that it does help sometimes. She also has senna, which I encouraged her to continue to continue to take if needed for constipation. Offered nausea medication, but she states that she does not need any at this time. States that she only has nausea and vomiting when she has the pain. Follow-up precautions were given. Verbal discharge instructions were given to the patient. They verb alized understanding. They are stable for discharge. (CHARUROSANA Terrence) 01/03/20 17:23 Afebrile vital stable no distress. Nurses notes reviewed. CBC shows a slight leukocytosis, CMP negative for hepatic or renal dysfunction. CT abdomen pelvis with oral and IV contrast still pending. Patient states she did have relief of pain with having pain medication and IV fluids. 2000: disposition given to DENAE Patricio 01/06/20 12:17 (ELAN AVILA) - Vital Signs Vital signs: Temp Pulse Resp BP Pulse Ox 97.9 F 70 18 148/62 H 99 01/03/20 21:14 01/03/20 21:14 01/03/20 21:14 01/03/20 21:14 01/03/20 21:14 - Laboratory Laboratory results interpreted by me: 01/03/20 01/03/20 01/03/20 13:30 13:40 13:40 WBC 12.2 H MCH 26.0 L MCHC 30.9 L Lymph % (Auto) 10.4 L Absolute Neuts (auto) 10.2 H Seg Neutrophils % 83.8 H Sodium 136.4 L Glucose 128 H Urine Ketones 20 H Ur Leukocyte Esterase SMALL H Discharge <ROSANA BOX - Last Filed: 01/04/20 01:19> <ELAN AVILA - Last Filed: 01/06/20 12:18> - Discharge Clinical Impression: Morbid obesity Ventral hernia Qualifiers: Obstruction and gangrene presence: without obstruction or gangrene Qualified Code(s): K43.9 - Ventral hernia without obstruction or gangrene Condition: Stable Disposition: HOME, SELF-CARE Additional Instructions: You were seen today in the emergency department for abdominal pain, nausea, and vomiting. The CT shows that your hernia is stable. Please follow-up with [facility] on Sunday. Have them address your hernia. Referrals: OLAF TAVAREZ MD [ACTIVE STAFF] - Follow up as needed MELISSA TAFOYA DO [NO LOCAL MD] - Follow up as needed MALATHI LEI MD [ACTIVE STAFF] - 01/05/20
--- NOTE | 2020-01-03 20:12 | RADIOLOGY REPORT (SQ) ---
EXAM DESCRIPTION: CT ABD/PELVIS WITH IV ORAL IMAGES COMPLETED DATE/TIME: 01/03/2020 6:42 pm REASON FOR STUDY: LLQ abd pain and vomiting, sudden onset today. Gastric sleeve surgery. COMPARISON: 09/07/2019 TECHNIQUE: CT scan of the abdomen and pelvis performed using helical scanning technique with dynamic intravenous contrast injection. No oral contrast. Images reviewed with lung, soft tissue, and bone windows. Reconstructed coronal and sagittal MPR images reviewed. Delayed images for evaluation of the urinary system also acquired. All images stored on PACS. All CT scanners at this facility use dose modulation, iterative reconstruction, and/or weight based d osing when appropriate to reduce radiation dose to as low as reasonably achievable (ALARA). [facility]: Dose Right [facility]: CareDose [facility]: Dose Right [facility]: Teradose 4D [facility]: MeetMoi CONTRAST TYPE AND DOSE: contrast/concentration: Isovue 350.00 mmol/ml; Total Contrast Delivered: 98. 9 ml; Total Saline Delivered: 15.0 ml RENAL FUNCTION: GFR > 60. RADIATION DOSE: CT Rad equipment meets quality standard of care and radiation dose reduction techniq ues were employed. CTDIvol: 19.2 - 21.1 mGy. DLP: 2362 mGy-cm.. LIMITATIONS: None. FINDINGS: LOWER CHEST: No significant findings. No nodules or infiltrates. LIVER: Liver has normal size and contour. Moderate diffuse hepatic steatosis. No focal hepatic mass . Hepatic and portal veins are patent. No biliary ductal dilation. SPLEEN: Normal size. No focal lesions. PANCREAS: No masses. No significant calcifications. No adjacent inflammation or peripancreatic fluid collections. Pancreatic duct not dilated. GALLBLADDER: No identified stones by CT criteria. No inflammatory changes to suggest cholecystitis. ADRENAL GLANDS: No significant masses or asymmetry. RIGHT KIDNEY AND URETER: No solid masses. No significant calcifications. No hydronephrosis or hyd roureter. LEFT KIDNEY AND URETER: No solid masses. No significant calcifications. No hydronephrosis or hydr oureter. AORTA AND VESSELS: No aneurysm. No dissection. Renal arteries, SMA, celiac without stenosis. RETROPERITONEUM: No retroperitoneal adenopathy, hemorrhage or masses. BOWEL AND PERITONEAL CAVITY: Very large anterior abdominal wall hernia with 2 components, at the vent ral midline the abdominal wall defect measures about 8.6 cm diameter and in the left lower abdomen th e abdominal wall defect measures about 3.9 cm diameter. The cecum appears to be herniated into the l eft anterior abdominal wall hernia along with multiple loops of small bowel and ascending and transve rse colon, similar in appearance to previous examination. Enteric contrast has progressed into the s mall bowel loops within the hernia sac as well is distal to this, without evidence of small bowel obs truction. No fluid in the hernia sac. No surrounding inflammatory change. No masses or inflammator y changes. No free fluid or peritoneal masses. Prior gastric sleeve surgery, stable in appearance fr om previous. APPENDIX: Normal, contained within the ventral hernia. PELVIS: No mass. No free fluid. Normal bladder. ABDOMINAL WALL: Large ventral hernia containing loops of small bowel and colon as described above. N o subcutaneous mass or fluid. BONES: No significant or acute findings. OTHER: No other significant finding. IMPRESSION: 1. Large ventral abdominal hernia containing loops of small bowel and the colon as well as the cecum and appendix. No evidence of incarceration or bowel obstruction. This is similar in appearance over multiple previous examinations. 2. Moderate hepatic steatosis. 3. Post gastric sleeve surgery. TECHNICAL DOCUMENTATION: JOB ID: [id number] Quality ID # [id number]: Final reports with documentation of one or more dose reduction techniques (e.g., Au tomated exposure control, adjustment of the mA and/or kV according to patient size, use of iterative reconstruction technique) 2010 [employer]- All Rights Reserved Reading location - IP/workstation name: [email or web address]
[2020-01-03 21:16] VITALS: BP 148/62
== END 2020-01-03 21:14 | disposition home or self-care (01) ==
LOC: ER 12:49
DX: K43.9 Ventral hernia without obstruction or gangrene (principal); R11.11 Vomiting without nausea; R10.32 Left lower quadrant pain; R10.814 Left lower quadrant abdominal tenderness; D72.829 Elevated white blood cell count, unspecified; E66.01 Morbid (severe) obesity due to excess calories; K76.0 Fatty (change of) liver, not elsewhere classified; I10 Essential (primary) hypertension; Z87.19 Personal history of other diseases of the digestive system; Z98.84 Bariatric surgery status; Z98.51 Tubal ligation status; Z88.8 Allergy status to other drugs, medicaments and biological substances
CPT/HCPCS: 99285; 96361; 96374; 96375; 36415; 87086; 83690; 85025; 87088; 80053; 81001; 74022; 74177; J2270; J2405; J7030

== ENCOUNTER → 2020-01-13 | Outpatient (CLI) | payer MEDICAID ==
--- NOTE | 2020-01-13 16:18 | RADIOLOGY REPORT (SQ) ---
EXAM DESCRIPTION: FOOT RIGHT COMPLETE IMAGES COMPLETED DATE/TIME: 01/13/2020 4:09 pm REASON FOR STUDY: (M79.671) PAIN IN RIGHT FOOT M79.671 PAIN IN RIGHT FOOT COMPARISON: None. NUMBER OF VIEWS: Three views. TECHNIQUE: AP, lateral and oblique radiographic images acquired of the right foot. LIMITATIONS: None. FINDINGS: MINERALIZATION: Normal. BONES: No acute fracture or dislocation. No worrisome bone lesions. JOINTS: No effusions. SOFT TISSUES: No soft tissue swelling. No foreign body. OTHER: Prominent calcaneal spur at the insertion site of the plantar aponeurosis. IMPRESSION: Prominent calcaneal spur. No acute fracture or dislocation. TECHNICAL DOCUMENTATION: JOB ID: [id number] 2010 [employer]- All Rights Reserved Reading location - IP/workstation name: [email or web address]
== END ==
LOC: OD 15:54
PROVIDERS: ATTEND Nurse Practitioner Family
DX: M79.671 Pain in right foot (principal)

== ENCOUNTER 2020-02-03 06:42 | Emergency (ER) | payer OTHER, MEDICAID ==
[2020-02-03 07:32] LABS: APPEARANCE,URINE CLEAR; BILIRUBIN,URINE NEGATIVE (NEGATIVE); COLOR,URINE COLORLESS; GLUCOSE, URINE NEGATIVE (NEGATIVE); KETONES,URINE NEGATIVE (NEGATIVE); LEUKOCYTE ESTERASE,URINE NEGATIVE (NEGATIVE); NITRITE,URINE NEGATIVE (NEGATIVE); PROTEIN,URINE NEGATIVE (NEGATIVE); URINE SPECIFIC GRAVITY 1.002; UROBILINOGEN,URINE NEGATIVE mg/dL (<2.0)
[2020-02-03 08:19] LABS: ABSOLUTE EOSINOPHILS # (AUTO) 0.1 10^3/uL (0.0-0.6); ABSOLUTE LYMPHOCYTES (AUTO) 1.3 10^3/uL (0.5-4.7); ABSOLUTE MONOCYTES (AUTO) 0.4 10^3/uL (0.1-1.4); ABSOLUTE NEUT (AUTO) 6.3 10^3/uL (1.7-8.2); BASOPHILS % (AUTO) 0.5 % (0-2); EOSINOPHILS % (AUTO) 1.4 % (0-6); HEMATOCRIT 41.2 % (36.0-47.0); LYMPHOCYTES % (AUTO) 16.1 % (13-45); MEAN CORPUSCULAR HEMOGLOBIN 28.8 pg (27.0-33.4); MEAN CORPUSCULAR HGB CONC 34.1 g/dL (32.0-36.0); MEAN CORPUSCULAR VOLUME 85 fl (80-97); MONOCYTES % (AUTO) 5.3 % (3-13); PLATELET COUNT 256 10^3/uL (150-450); RED BLOOD COUNT 4.87 10^6/uL (3.72-5.28); RED CELL DISTRIBUTION WIDTH 13.6 % (11.5-14.0); SEGMENTED NEUTROPHILS % (AUTO) 76.7 % (42-78); TOTAL CELLS COUNTED % (AUTO) 100 %; WHITE BLOOD COUNT 8.2 10^3/uL (4.0-10.5)
[2020-02-03 08:33] LABS: ALBUMIN 4.6 g/dL (3.5-5.0); ALKALINE PHOSPHATASE 83 U/L (38-126); ANION GAP 8 (5-19); ASPARTATE AMINO TRANSFERASE 21 U/L (14-36); BILIRUBIN,TOTAL 0.8 mg/dL (0.2-1.3); BLOOD UREA NITROGEN 13 mg/dL (7-20); CALCIUM 9.9 mg/dL (8.4-10.2); CARBON DIOXIDE 29 mmol/L (22-30); CHLORIDE 102 mmol/L (98-107); GLUCOSE 119 mg/dL (75-110); POTASSIUM 5.1 mmol/L (3.6-5.0)
--- NOTE | 2020-02-03 09:53 | ER Document Report ---
ED General - General Chief Complaint: Abdominal Pain Stated Complaint: SEVERE ABDOMINAL PAIN HISTORY OF HERNIA Time Seen by Provider: 02/03/20 09:01 Primary Care Provider: JERRY LARA FNP [Primary Care Provider] - Follow up as needed Information source: Patient TRAVEL OUTSIDE OF THE [place] IN LAST 30 DAYS: No - HPI Notes: Patient presents with abdominal pain. She states it started about 1:30 in the morning. It was severe. Is now improved but still present. It is located mainly on the left side of her abdomen but radiates across both sides of the abdomen. It has been relatively constant. It is worse with movement and better with rest. She states that she has a known hernia in this area that has an incisional hernia from a previous . She states she has seen several surgeons but they have told her that she has to lose weight before they can repair this hernia. She has not had any vomiting but she did have some nausea. She states she was here 1 month ago and at that time it was worse because she was vomiting. - Related Data Allergies/Adverse Reactions: chlorpheniramine [From [employer]] Allergy (Severe, Verified 02/03/20 06:56) headache, n and v dextromethorphan tannate [From [facility]] Allergy (Severe, Verified 02/03/20 06:56) headache, n and v pseudoephedrine tannate [From Respicardia] Allergy (Severe, Verified 02/03/20 06:56) headache, n and v NSAIDS (Non-Steroidal Anti-Inflamma Adverse Reaction (Verified 02/03/20 06:56) Past Medical History - General Information source: Patient - Social History Smoking Status: Former Smoker Frequency of alcohol use: None Drug Abuse: None Family History: Reviewed & Not Pertinent, CAD, DM, Hypertension, Thyroid Disfunction - Past Medical History Cardiac Medical History: Reports: Hx Hypertension - no current meds Denies: Hx Coronary Artery Disease, Hx Heart Attack Pulmonary Medical History: Reports: Hx Bronchitis, Hx Pneumonia Denies: Hx Asthma, Hx COPD Neurological Medical History: Denies: Hx Cerebrovascular Accident, Hx Seizures Endocrine Medical History: Reports: Hx Diabetes Mellitus Type 2 - "borderline" per pt Renal/ Medical History: Denies: Hx Peritoneal Dialysis GI Medical History: Reports: Hx Gastroesophageal Reflux Disease Musculoskeletal Medical History: Denies Hx Arthritis Psychiatric Medical History: Reports: Hx Anxiety, Hx Depression Past Surgical History: Reports: Hx Section - x2, Hx Gastric Bypass Surgery - gastric sleeve, Hx Gynecologic Surgery - novasure, vag repair, Hx Tonsillectomy, Hx Tubal Ligation, Other - Gastric sleeve surgery - Immunizations Immunizations up to date: No Hx Diphtheria, Pertussis, Tetanus Vaccination: No Review of Systems - Review of Systems Constitutional: denies: Chills, Fever Cardiovascular: denies: Chest pain, Palpitations Respiratory: denies: Cough, Short of breath -: Yes All other systems reviewed and negative Physical Exam - Vital signs Vitals: Temp Pulse Resp BP Pulse Ox 98.3 F 72 32 H 172/79 H 100 02/03/20 06:49 02/03/20 06:49 02/03/20 06:49 02/03/20 06:49 02/03/20 06:49 Interpretation: Hypertensive - General General appearance: Appears well, Alert - HEENT Head: Normocephalic, Atraumatic Eyes: Normal Pupils: PERRL - Respiratory Respiratory status: No respiratory distress Chest status: Nontender Breath sounds: Normal Chest palpation: Normal - Cardiovascular Rhythm: Regular Heart sounds: Normal auscultation Murmur: No - Abdominal Inspection: Morbidly Obese Bowel sounds: Normal Tenderness: Tender - Patient has abdominal tenderness that is diffuse but greatest on the left lateral aspect of the incisional hernia. She does have reducible bile inside of the hernia. Her exam is not consistent with incarceration. There is no warmth redness or induration. And I am able to manipulate the bowel without problem. - Back Back: Normal, Nontender - Extremities General upper extremity: Normal inspection, Nontender, Normal color, Normal ROM, Normal temperature General lower extremity: Normal inspection, Nontender, Normal color, Normal ROM, Normal temperature, Normal weight bearing. No: Magalie's sign - Neurological Neuro grossly intact: Yes Cognition: Normal Orientation: AAOx4 [place] Coma Scale Eye Opening: Spontaneous [place] Coma Scale Verbal: Oriented [place] Coma Scale Motor: Obeys Commands [place] Coma Scale Total: 15 Speech: Normal Motor strength normal: LUE, RUE, LLE, RLE Sensory: Normal - Psychological Associated symptoms: Normal affect, Normal mood - Skin Skin Temperature: Warm Skin Moisture: Dry Skin Color: Normal Course - Re-evaluation Re-evalutation: 02/03/20 09:50 Patient is laboratories and unremarkable. Patient's vital signs are stable other than the moderately elevated blood pressure. I discussed imaging with the patient versus outpatient follow-up. Due to the amount of imaging patient has had she chose to forego imaging at this point and follow-up as an outpatient which I believe is reasonable. I do not see any signs of incarceration or any signs that the hernia would require emergent repair. - Vital Signs Vital signs: Temp Pulse Resp BP Pulse Ox 98.3 F 72 32 H 172/79 H 100 02/03/20 06:49 02/03/20 06:49 02/03/20 06:49 02/03/20 06:49 02/03/20 06:49 - Laboratory Result Diagrams: 02/03/20 08:00 02/03/20 08:00 Laboratory results interpreted by me: 02/03/20 08:00 Potassium 5.1 H Glucose 119 H Discharge - Discharge Clinical Impression: Incisional hernia of anterior abdominal wall without obstruction or gangrene, Morbid obesity Condition: Stable Disposition: HOME, SELF-CARE Instructions: Abdominal Pain ([facility]), Hernia ([facility]) Additional Instructions: Please follow up with surgery as soon as possible Prescriptions: Peg 3350/Na Sulf,Bicarb,Cl/KCl [Golytely Solution 4000 ml] 4,000 ml PO DAILY #1 bottle Tramadol HCl [Ultram] 50 mg PO Q6 PRN 3 Days #12 tablet PRN Reason: For Pain Forms: Return to Work Referrals: JERRY LARA FNP [Primary Care Provider] - Follow up as needed
[2020-02-03 10:12] VITALS: BP 141/59
== END 2020-02-03 10:12 | disposition home or self-care (01) ==
LOC: ER 06:42
DX: K43.2 Incisional hernia without obstruction or gangrene (principal); R10.9 Unspecified abdominal pain; E66.01 Morbid (severe) obesity due to excess calories; I10 Essential (primary) hypertension; R73.03 Prediabetes
CPT/HCPCS: 36415; 80053; 81001; 81025; 83690; 85025; 99283

== ENCOUNTER 2020-04-29 06:02 | Emergency (ER) | payer OTHER, MEDICAID ==
[2020-04-29] MEDS ORDERED: NORMAL SALINE 1000 ML 1,000 ML IV ONE (06:26)
[2020-04-29] MEDS ORDERED: ONDANSETRON HCL INJ/PF 4 MG/2 ML SDV IV ONE (06:26)
--- NOTE | 2020-04-29 06:36 | ER Document Report ---
Entered by IRMA CASTRO SCRIBE 04/29/20611 Acting as scribe for:ALISSA BHATTI MD ED GI/ - General Stated Complaint: LEFT ABDOMINAL PAIN,NAUSEA,VOMITING Time Seen by Provider: 04/29/20 06:11 Primary Care Provider: JERRY LARA FNP [Primary Care Provider] - Follow up in 3-5 days Mode of Arrival: Medic Information source: Patient Notes: This 49 year old female patient with a history of an incisional hernia due to C- sections presents to the ED today via EMS with complaints of abdominal pain that started around 2100 last night. Patient states that she although she was in pain, she was able to go to bed, but woke up around 0030 with severe pain and vomiting. She then states "I got dizzy and disoriented. I was worried I was going to pass out." She notes hard and soft stools recently and reports that she has not been able to have a successful bowel movement this morning or last night. She received Zofran ODT via EMS. TRAVEL OUTSIDE OF THE [place] IN LAST 30 DAYS: No - Related Data Allergies/Adverse Reactions: chlorpheniramine [From Atuss DS] Allergy (Severe, Verified 02/03/20 06:56) headache, n and v dextromethorphan tannate [From Atuss DS] Allergy (Severe, Verified 02/03/20 06:56) headache, n and v pseudoephedrine tannate [From Atuss DS] Allergy (Severe, Verified 02/03/20 06:56) headache, n and v NSAIDS (Non-Steroidal Anti-Inflamma Adverse Reaction (Verified 02/03/20 06:56) Past Medical History - General Information source: Patient, [facility] - Social History Smoking Status: Former Smoker Cigarette use (# per day): No Chew tobacco use (# tins/day): No Smoking Education Provided: No Family History: Reviewed & Not Pertinent, CAD, DM, Hypertension, Thyroid Disfunction - Past Medical History Cardiac Medical History: Reports: Hx Hypertension - no current meds Pulmonary Medical History: Reports: Hx Bronchitis, Hx Pneumonia Endocrine Medical History: Reports: Hx Diabetes Mellitus Type 2 - "borderline" per pt GI Medical History: Reports: Hx Gastroesophageal Reflux Disease Psychiatric Medical History: Reports: Hx Anxiety, Hx Depression Past Surgical History: Reports: Hx Section - x2, Hx Gastric Bypass Surgery - gastric sleeve, Hx Gynecologic Surgery - novasure, vag repair, Hx Tonsillectomy, Hx Tubal Ligation - Immunizations Immunizations up to date: No Hx Diphtheria, Pertussis, Tetanus Vaccination: No Review of Systems - Review of Systems Constitutional: No symptoms reported EENT: No symptoms reported Cardiovascular: See HPI, Dizziness Respiratory: No symptoms reported Gastrointestinal: See HPI, Abdominal pain, Nausea, Vomiting, Constipation Genitourinary: No symptoms reported Female Genitourinary: No symptoms reported Musculoskeletal: No symptoms reported Skin: No symptoms reported Hematologic/Lymphatic: No symptoms reported Neurological/Psychological: No symptoms reported -: Yes All other systems reviewed and negative Physical Exam - Vital signs Vitals: Temp Pulse Resp BP Pulse Ox 98.7 F 87 20 143/64 H 96 04/29/20 06:18 04/29/20 06:18 04/29/20 06:18 04/29/20 06:18 04/29/20 06:18 - General General appearance: Alert In distress: None - HEENT Head: Normocephalic, Atraumatic Eyes: Normal Extraocular movements intact: Yes Pupils: PERRL Neck: Normal, Supple - Respiratory Respiratory status: No respiratory distress Chest status: Nontender Breath sounds: Normal Chest palpation: Normal - Cardiovascular Rhythm: Regular Heart sounds: Normal auscultation Murmur: No - Abdominal Inspection: Morbidly Obese, Other - There is a very large hernia present in the left lower abdomen that is extremely tender to palpation Distension: No distension Bowel sounds: Normal Tenderness: Tender - Patient reports pain across her upper abdomen which is typical of her recurrent hernial pain Organomegaly: No organomegaly - Back Back: Normal, Nontender - Extremities General upper extremity: Normal inspection General lower extremity: Normal inspection. No: Edema - Neurological Neuro grossly intact: Yes Orientation: AAOx4 [place] Coma Scale Eye Opening: Spontaneous [place] Coma Scale Verbal: Oriented [place] Coma Scale Motor: Obeys Commands [place] Coma Scale Total: 15 - Psychological Associated symptoms: Normal affect, Normal mood - Skin Skin Temperature: Warm Skin Moisture: Dry Skin Color: Normal Course - Re-evaluation Re-evalutation: 04/29/20 09:30 Abdominal films do not show air-fluid levels, do not suggest obstruction, and there is not much stool noted. Lab work is unremarkable except for the urine that is a little concentrated. She does have IV normal saline running at this time. Patient reports taking a laxative and that her bowels have actually been moving better over the last day. She states it still feels like she does not fully empty out. She does have half of her intestinal contents within her extremely large hernia. It sounds like she takes a laxative when she starts getting stopped up, but does not take anything regularly to prevent that from happening. On initial history, she had reported no bowel movement last night or today w tracey is not fit with the history of getting at this time. When asked about MiraLAX, she states she has taken it but it did not work. It sounds like she took it as an immediate relief laxative and was disappointed and quit using it. I have explained to her that if she takes MiraLAX on a daily basis, it may prevent her from having these problems develop. Reviewing her history and previous films, I am inclined to treat her with tramadol and nausea medication. At this time I do not see a good reason to do another CT and expose her to radiation again. Reviewing records shows she has had approximately [address] scans in this facility in the past 10 years. When I first walked into the room, the patient was relaxed and talking on the phone with someone. By the time we finished discussing the findings and suggestions about treatment, she is moaning and groaning in severe pain. 04/29/20 09:39 - Vital Signs Vital signs: Temp Pulse Resp BP Pulse Ox 98.7 F 87 22 H 151/71 H 95 04/29/20 06:21 04/29/20 06:18 04/29/20 09:01 04/29/20 09:01 04/29/20 09:01 - Laboratory Results Result Diagrams: 04/29/20 08:14 04/29/20 08:14 Laboratory Results Interpreted: 04/29/20 04/29/20 04/29/20 08:14 08:14 08:14 WBC 10.7 H Lymph % (Auto) 5.8 L [place] % (Auto) 2.6 L Absolute Neuts (auto) 9.7 H Seg Neutrophils % 91.0 H Sodium 136.9 L Glucose 132 H Urine Protein 30 H Urine Ketones TRACE H Ur Leukocyte Esterase TRACE H Critical Laboratory Results Reviewed: No Critical Results - Radiology Results Critical Radiology Results Reviewed: No Critical Results Discharge - Discharge Clinical Impression: Morbid obesity Ventral hernia Qualifiers: Obstruction and gangrene presence: without obstruction or gangrene Qualified Code(s): K43.9 - Ventral hernia without obstruction or gangrene Abdominal pain Qualifiers: Abdominal location: generalized Qualified Code(s): R10.84 - Generalized abdominal pain Condition: Stable Disposition: HOME, SELF-CARE Additional Instructions: Abdominal Pain There are many causes of abdominal pain. Pain can mean a serious problem requiring surgery (such as appendicitis). It can also be an innocent problem katherin t goes away on its own (such as a viral infection). Often, time must pass to determine the cause of pain. The physician does not feel that hospitalization is necessary, at present. Things may change within the next 24 hours. Call the doctor or come back for re- examination if any problems occur, such as: (1) Pain that becomes more severe, steady, or becomes concentrated in one specific area. Also, pain that is more severe with movement or coughing. (2) Vomiting that persists or becomes more frequent. (3) Blood in the vomitus, urine, or bowel movements. Blood in the stool may have a tarry or black appearance. (4) Shaking chills or fever greater than 100 degrees F. (5) The abdomen becomes more distended or swollen. (6) Bowel movements cease. (7) Failure to improve as expected. The pain you have been experiencing seems to be cramping pain probably related to gas in your intestines. This pain seems to cause nausea and vomiting. The x-rays today did not suggest a bowel obstruction. Your lab work does not suggest an infectious process. You should take something like MiraLAX on a daily basis to help prevent constipation from developing. Take the Zofran and tramadol as prescribed for nausea and pain when needed. Follow-up with your primary care provider to work out a long-term management regimen for your recurring abdominal pain with nausea and vomiting. RETURN TO THE EMERGENCY ROOM IF ANY NEW OR WORSENING SYMPTOMS. Prescriptions: Tramadol HCl [Ultram] 50 mg PO ASDIR PRN #30 tablet PRN Reason: Ondansetron [Zofran Odt 4 mg Tablet] 1 - 2 tab PO Q4H PRN #20 tab.rapdis PRN Reason: Referrals: JERRY LARA FNP [Primary Care Provider] - Follow up in 3-5 days I personally performed the services described in the documentation, reviewed and edited the documentation which was dictated to the scribe in my presence, and it accurately records my words and actions.
--- NOTE | 2020-04-29 07:29 | RADIOLOGY REPORT (SQ) ---
Acute abdominal series x-ray three views on 04/29/2020 at 7:07 AM CLINICAL INDICATION: Large ventral hernia, generalized abdominal pain, constipation COMPARISON: 01/03/2020 FINDINGS: CHEST: The lungs are clear. Cardiac, hilar and mediastinal contours are within normal limits. Pulmonary vascularity is within normal limits. ABDOMEN: There is no free air. Postsurgical changes from gastric sleeve surgery are noted. Calcification in the left pelvis is consistent with phlebolith. Bowel gas pattern is nonspecific with a single air-fluid level in the right lower quadrant. No other abnormal calcification or mass effect is noted. Degenerative changes are noted in the spine. No increased stool to suggest constipation is noted. IMPRESSION: 1. No acute cardiopulmonary disease. 2. Nonspecific abdomen.
[2020-04-29 08:27] LABS: ABSOLUTE LYMPHOCYTES (AUTO) 0.6 10^3/uL (0.5-4.7); ABSOLUTE MONOCYTES (AUTO) 0.3 10^3/uL (0.1-1.4); ABSOLUTE NEUT (AUTO) 9.7 10^3/uL (1.7-8.2); BASOPHILS % (AUTO) 0.3 % (0-2); EOSINOPHILS % (AUTO) 0.3 % (0-6); HEMATOCRIT 42.3 % (36.0-47.0); LYMPHOCYTES % (AUTO) 5.8 % (13-45); MEAN CORPUSCULAR HEMOGLOBIN 27.5 pg (27.0-33.4); MEAN CORPUSCULAR HGB CONC 33.2 g/dL (32.0-36.0); MEAN CORPUSCULAR VOLUME 83 fl (80-97); MONOCYTES % (AUTO) 2.6 % (3-13); PLATELET COUNT 273 10^3/uL (150-450); RED CELL DISTRIBUTION WIDTH 13.3 % (11.5-14.0); TOTAL CELLS COUNTED % (AUTO) 100 %; WHITE BLOOD COUNT 10.7 10^3/uL (4.0-10.5)
[2020-04-29 08:41] LABS: APPEARANCE,URINE SLIGHTLY-CLOUDY; BILIRUBIN,URINE NEGATIVE (NEGATIVE); COLOR,URINE YELLOW; GLUCOSE, URINE NEGATIVE (NEGATIVE); KETONES,URINE TRACE mg/dL (NEGATIVE); LEUKOCYTE ESTERASE,URINE TRACE (NEGATIVE); NITRITE,URINE NEGATIVE (NEGATIVE); PROTEIN,URINE 30 mg/dL (NEGATIVE); URINE SPECIFIC GRAVITY 1.027; UROBILINOGEN,URINE NEGATIVE mg/dL (<2.0)
[2020-04-29 08:53] LABS: ALBUMIN 4.7 g/dL (3.5-5.0); ALKALINE PHOSPHATASE 85 U/L (38-126); ANION GAP 11 (5-19); ASPARTATE AMINO TRANSFERASE 24 U/L (14-36); BILIRUBIN,DIRECT 0.2 mg/dL (0.0-0.4); BILIRUBIN,TOTAL 0.9 mg/dL (0.2-1.3); BLOOD UREA NITROGEN 17 mg/dL (7-20); CALCIUM 9.8 mg/dL (8.4-10.2); CARBON DIOXIDE 26 mmol/L (22-30); CHLORIDE 100 mmol/L (98-107); GLUCOSE 132 mg/dL (75-110); POTASSIUM 4.4 mmol/L (3.6-5.0)
[2020-04-29 09:06] VITALS: BP 151/71
[2020-04-29] MEDS ORDERED: TRAMADOL HCL 50 MG TABLET PO ONE (09:44)
== END 2020-04-29 10:15 | disposition home or self-care (01) ==
LOC: ER 06:02
DX: K43.9 Ventral hernia without obstruction or gangrene (principal); R10.84 Generalized abdominal pain; E66.01 Morbid (severe) obesity due to excess calories; R11.2 Nausea with vomiting, unspecified; R42 Dizziness and giddiness; I10 Essential (primary) hypertension; Z98.84 Bariatric surgery status; Z87.891 Personal history of nicotine dependence; Z88.8 Allergy status to other drugs, medicaments and biological substances
CPT/HCPCS: 99284; 96361; 96374; 36415; 85025; 80053; 81001; 74022; J2405; J7030